=== PATIENT | female | born 1945 | race Caucasian/White ===

== ENCOUNTER → 2016-08-10 16:37 | Outpatient (CLI) | payer MEDICARE ==
[2015-08-18 11:55] VITALS: BMI 26.7
[~2016-08-10 16:37] MED LIST: CELEXA40 MG PO; GLUCOPHAGE500 MG PO; LISINOPRIL5 MG PO; NIZORAL 2 % CRE15 GM TOPICAL; PRAVASTATIN SOD10 MG PO
== END | disposition home or self-care (01) ==
LOC: D.MAMMO 07-05 15:45
DX: Z12.31 Encounter for screening mammogram for malignant neoplasm of breast (principal)

== ENCOUNTER → 2017-01-24 08:40 | Outpatient (CLI) | payer MEDICARE ==
[2015-08-18 11:55] VITALS: BMI 26.7
== END | disposition home or self-care (01) ==
LOC: D.CT 08:40
DX: R94.39 Abnormal result of other cardiovascular function study (principal); M79.604 Pain in right leg; M79.605 Pain in left leg

== ENCOUNTER → 2018-08-01 10:00 | Outpatient (CLI) | payer MEDICARE ==
[2015-08-18 11:55] VITALS: BMI 26.7
== END | disposition home or self-care (01) ==
LOC: D.MAMMO 10:00
PROVIDERS: ATTEND Clinical Nurse Specialist Adult Health
DX: Z12.31 Encounter for screening mammogram for malignant neoplasm of breast (principal)

== ENCOUNTER 2020-05-19 13:27 | Inpatient (IN) | payer MEDICARE ==
[~2020-05-19] VITALS: Ht 170.2 cm; Wt 68.5 kg
[2020-05-19 13:52] LABS: BASOPHILS 0.3 % (0-2); EOSINOPHILS 0 % (0-7); HEMATOCRIT 37.2 % (36.0-48.0); IMMATURE GRANULOCYTES 0.2 % (0-5); LYMPHOCYTE ABS# 0.95 10x3/uL (1.18-3.74); LYMPHOCYTES 14.4 % (15-50); MCH 30.9 pg (26.0-34.0); MCHC 32.3 g/dL (31.0-37.0); MCV 95.9 fL (80.0-100.0); MEAN PLATELET VOLUME 9.9 fL (7.4-10.4); MONOCYTES 12.9 % (2-11); NEUTROPHIL ABS# 4.77 10x3/uL (1.56-6.13); NEUTROPHILS 72.2 % (40-80); PLATELET COUNT 143 10x3/uL (130-400); RBC 3.88 10x6/uL (4.00-5.40); RDW 14.6 % (11.5-14.5); WBC 6.6 10x3/uL (4.8-10.8)
[2020-05-19 13:58] LABS: CALC OSMOLALITY 271 mosm/kg (275-300); CALCIUM 8.9 mg/dL (8.5-10.1); CARBON DIOXIDE 30.2 mmol/L (21.0-32.0); CHLORIDE - SERUM 94 mmol/L (98-107); CREATININE - SERUM 1.5 mg/dL (0.6-1.3); GLUCOSE 156 mg/dL (74-106); POTASSIUM - SERUM 3.3 mmol/L (3.5-5.1); SODIUM 131 mmol/L (136-145); UREA NITROGEN 30 mg/dL (7-18); eGFR NON AFRICAN AMERICAN 36 mL/min (90-120)
[2020-05-19 14:02] LABS: APTT 29.5 SECONDS (22.8-39.4); INR 1.2 (0.85-1.17); PROTIME 14.1 SECONDS (11.6-15.0)
[2020-05-19 14:14] LABS: ALBUMIN 2.8 g/dL (3.4-5.0); ALKALINE PHOSPHATASE 280 U/L (30-120); ALT (SGPT) 62 U/L (10-68); BILIRUBIN - TOTAL 3.32 mg/dL (0.2-1.3); CKMB 31.5 U/L (0.0-3.6); PROTEIN - SERUM 7.4 g/dL (6.4-8.2); TROPONIN-I 0.027 ng/mL (0.000-0.060)
[2020-05-19 14:15] LABS: CREATINE KINASE 3848 UL (21-215)
[2020-05-19 14:45] LABS: BILIRUBIN 3+ (NEGATIVE); KETONE NEGATIVE (NEGATIVE); NITRITE NEGATIVE (NEGATIVE); UROBILINOGEN 4 mg/dL (< 2)
[2020-05-19 14:47] LABS: AMORPHOUS SEDIMENT >1+ LPF (NONE SEEN); BACTERIA FEW HPF (NONE SEEN); SQUAMOUS EPITHELIAL 3 HPF (0-4); WHITE CELLS - URINE 0-5 HPF (0-4)
[2020-05-19 17:15] VITALS: BP 108/59
[2020-05-19 18:40] VITALS: BP 113/55; BMI 23.7
[2020-05-19 20:36] LABS: CREATINE KINASE 3330 UL (21-215)
[2020-05-19 20:39] LABS: CKMB 20.3 U/L (0.0-3.6)
[2020-05-20] VITALS: BP 104/56
[2020-05-20 04:00] VITALS: BP 106/56
--- NOTE | 2020-05-20 04:06 | NUR ---
ASSESSED AT THE BEGINNING OF THE SHIFT. PT WAS DROWSY AND FELL ASLEEP SOON YOU WOKE HER UP. BED ALARM IN PLACE AND IV FLUIDS INFUSING ORDERED. WE ARE ABLE TO GET HER UP TO THE BATHROOM LATER IN THE EVENING AND SHE DID WELL WITH ONE PERSON ASSIST. SHE THEN WAS AWAKE AND WANTING TO WATCH TV. SHE IS WEARING O2 AT 2 LITERS. NO COMPLAINTS HAVE BEEN VOICED.
[2020-05-20 06:48] LABS: BASOPHILS 0.5 % (0-2); EOSINOPHILS 0.5 % (0-7); HEMATOCRIT 34.4 % (36.0-48.0); HEMOGLOBIN 10.5 g/dL (12-16); IMMATURE GRANULOCYTES 0.2 % (0-5); LYMPHOCYTE ABS# 0.72 10x3/uL (1.18-3.74); LYMPHOCYTES 12.2 % (15-50); MCH 29.9 pg (26.0-34.0); MCHC 30.5 g/dL (31.0-37.0); MEAN PLATELET VOLUME 10.8 fL (7.4-10.4); MONOCYTES 15.8 % (2-11); NEUTROPHIL ABS# 4.16 10x3/uL (1.56-6.13); NEUTROPHILS 70.8 % (40-80); PLATELET COUNT 143 10x3/uL (130-400); RBC 3.51 10x6/uL (4.00-5.40); RDW 14.9 % (11.5-14.5); WBC 5.9 10x3/uL (4.8-10.8)
[2020-05-20 07:03] LABS: APTT 34.9 SECONDS (22.8-39.4); INR 1.25 (0.85-1.17); PROTIME 14.5 SECONDS (11.6-15.0)
[2020-05-20 07:24] LABS: ALBUMIN 2.3 g/dL (3.4-5.0); ALKALINE PHOSPHATASE 222 U/L (30-120); ALT (SGPT) 56 U/L (10-68); BILIRUBIN - TOTAL 3.14 mg/dL (0.2-1.3); CALCIUM 8.3 mg/dL (8.5-10.1); CARBON DIOXIDE 28.6 mmol/L (21.0-32.0); CHLORIDE - SERUM 100 mmol/L (98-107); POTASSIUM - SERUM 3.3 mmol/L (3.5-5.1); PROTEIN - SERUM 6.2 g/dL (6.4-8.2); SODIUM 135 mmol/L (136-145); UREA NITROGEN 23 mg/dL (7-18)
[2020-05-20 07:37] LABS: CALC OSMOLALITY 271 mosm/kg (275-300); CREATINE KINASE 2181 UL (21-215); CREATININE - SERUM 0.8 mg/dL (0.6-1.3); GLUCOSE 59 mg/dL (74-106); eGFR NON AFRICAN AMERICAN 74 mL/min (90-120)
[2020-05-20 07:38] LABS: CKMB 9.7 U/L (0.0-3.6)
--- NOTE | 2020-05-20 08:00 | NUR ---
ASSESSMENT PER FLOW SHEET. 02 SATS 80% ON 2 LITERS NASAL CANULA. INCREASED 02 TO 4 LITERS HIGH FLOW. SATS 93-95%. FALL PREVENTION IN PLACE
[2020-05-20 08:34] VITALS: BP 100/57
[2020-05-20 13:06] VITALS: BP 108/58
--- NOTE | 2020-05-20 15:03 | NUR ---
SC'D PLACED ON PATIENT.IS TO BEDSIDE. 500ML RETURMN DEMONSTRATION.
[2020-05-20 17:11] VITALS: BP 103/65
[2020-05-20 19:51] VITALS: BP 115/67
--- NOTE | 2020-05-21 02:30 | NUR ---
IV IS BLEEDING AND REMOVED. IV INTACTED, NEW IV PLACE IN RFA NS@125. PT WILL CONT TO BE MONITORED.
--- NOTE | 2020-05-21 03:00 | NUR ---
I have reviewed this patient and I concur with the Shift Assessment completed by the Licensed Practical Nurse today this shift.
[2020-05-21 04:32] VITALS: BP 97/31
[2020-05-21 05:44] VITALS: BP 104/76
[2020-05-21 07:03] LABS: BASOPHILS 0.4 % (0-2); EOSINOPHILS 0.8 % (0-7); HEMATOCRIT 36.7 % (36.0-48.0); HEMOGLOBIN 11.1 g/dL (12-16); IMMATURE GRANULOCYTES 0.2 % (0-5); LYMPHOCYTE ABS# 0.67 10x3/uL (1.18-3.74); LYMPHOCYTES 13.6 % (15-50); MCH 30.2 pg (26.0-34.0); MCHC 30.2 g/dL (31.0-37.0); MCV 99.7 fL (80.0-100.0); MEAN PLATELET VOLUME 10.5 fL (7.4-10.4); MONOCYTES 14.6 % (2-11); NEUTROPHIL ABS# 3.46 10x3/uL (1.56-6.13); NEUTROPHILS 70.4 % (40-80); PLATELET COUNT 149 10x3/uL (130-400); RBC 3.68 10x6/uL (4.00-5.40); RDW 14.8 % (11.5-14.5); WBC 4.9 10x3/uL (4.8-10.8)
[2020-05-21 07:18] LABS: ALBUMIN 2.4 g/dL (3.4-5.0); ALKALINE PHOSPHATASE 240 U/L (30-120); ALT (SGPT) 56 U/L (10-68); BILIRUBIN - TOTAL 2.41 mg/dL (0.2-1.3); CALC OSMOLALITY 269 mosm/kg (275-300); CALCIUM 8.5 mg/dL (8.5-10.1); CARBON DIOXIDE 27.8 mmol/L (21.0-32.0); CHLORIDE - SERUM 102 mmol/L (98-107); CREATININE - SERUM 0.7 mg/dL (0.6-1.3); GLUCOSE 86 mg/dL (74-106); POTASSIUM - SERUM 3.7 mmol/L (3.5-5.1); PROTEIN - SERUM 6.5 g/dL (6.4-8.2); SODIUM 135 mmol/L (136-145); eGFR NON AFRICAN AMERICAN 87 mL/min (90-120)
[2020-05-21 07:19] LABS: UREA NITROGEN 15 mg/dL (7-18)
--- NOTE | 2020-05-21 08:02 | NUR ---
REPOSITIONED IN BED FOR COMFORT. ALERT AND ORIENTED X3. NO C/O AT THIS TIME. LUNGS ARE DIMINISHED THROUGHOUT, NON PRODUCTIVE WET COUGH NOTED. SKIN IS INTACT WITHOUT REDNESS. IV TO RIGHT FOREARM IS PATENT WITHOUT REDNESS AT INSERTION SITE. DENIES NEEDS.
[2020-05-21 08:09] VITALS: BP 128/77
--- NOTE | 2020-05-21 10:00 | NUR ---
ATE MOST OF BREAKFAST. TOOK AM MEDS WITHOUT DIFFICULTY. DENIES NEEDS.
--- NOTE | 2020-05-21 11:30 | NUR ---
FSBS 135. NO COVERAGE NEEDED. PATIENT IS C/O BEING VERY HOT. SOME CLAMINESS NOTED. AC TURNED WAY DOWN. WILL MONITOR.
[2020-05-21 12:04] VITALS: BP 122/60
[2020-05-21 13:41] LABS: CKMB 2.2 U/L (0.0-3.6); TROPONIN-I 0.027 ng/mL (0.000-0.060)
[2020-05-21 13:43] LABS: CREATINE KINASE 738 UL (21-215)
--- NOTE | 2020-05-21 14:00 | NUR ---
AMBULATED TO BR WITH RW MIN ASSIST OF ONE. HAD SAMLL AMOUNT OF SOFT SEMI FORMED STOOL. SKIN CARE PER SELF. REPOSITIONED IN BED FOR COMFORT.
--- NOTE | 2020-05-21 16:30 | NUR ---
REHAB PRESCREENING Rehab referral received and chart reviewed. This patient has [facility] which requires a prior authorizaiton to approve rehab stay. She does have OT ordered. Rehab will begin preauth when OT evaluation is completed. Thank you for this referral! Olinda Parr, ENGLISH LECTURER Rehab PD
[2020-05-21 17:29] VITALS: BP 103/66
[2020-05-21 18:35] LABS: CKMB 2.2 U/L (0.0-3.6); CREATINE KINASE 605 UL (21-215); TROPONIN-I < 0.017 ng/mL (0.000-0.060)
--- NOTE | 2020-05-21 19:31 | NUR ---
REFUSED SUPPER TRAY AT THIS TIME. DENIES NEEDS. NO CHANGES NOTED. EKG DONE.
--- NOTE | 2020-05-21 19:48 | NUR ---
PATIENT RESTING IN BED WITH EYES CLOSED AND NO S/S OF DISTRESS. BED IN LOWEST POSITION AND CALL LIGHT IN REACH.
[2020-05-21 20:45] VITALS: BP 125/56
--- NOTE | 2020-05-21 20:59 | NUR ---
ADMINISTERED MEDS PER ORDERS. PATIENT ANUJ WELL. ENCOURAGED TO CALL WITH NEEDS.
[2020-05-22 00:49] VITALS: BP 103/52
[2020-05-22 00:53] LABS: CKMB 2.4 U/L (0.0-3.6); CREATINE KINASE 511 UL (21-215); TROPONIN-I 0.025 ng/mL (0.000-0.060)
[2020-05-22 04:43] VITALS: BP 142/73
[2020-05-22 06:03] LABS: BASOPHILS 0.2 % (0-2); EOSINOPHILS 0.7 % (0-7); HEMATOCRIT 39.3 % (36.0-48.0); HEMOGLOBIN 11.6 g/dL (12-16); IMMATURE GRANULOCYTES 0.4 % (0-5); LYMPHOCYTE ABS# 0.59 10x3/uL (1.18-3.74); LYMPHOCYTES 13.2 % (15-50); MCH 29.9 pg (26.0-34.0); MCHC 29.5 g/dL (31.0-37.0); MCV 101.3 fL (80.0-100.0); MEAN PLATELET VOLUME 10.2 fL (7.4-10.4); MONOCYTES 11.4 % (2-11); NEUTROPHIL ABS# 3.32 10x3/uL (1.56-6.13); NEUTROPHILS 74.1 % (40-80); PLATELET COUNT 156 10x3/uL (130-400); RBC 3.88 10x6/uL (4.00-5.40); RDW 14.7 % (11.5-14.5); WBC 4.5 10x3/uL (4.8-10.8)
[2020-05-22 06:37] LABS: ALBUMIN 2.3 g/dL (3.4-5.0); ALKALINE PHOSPHATASE 238 U/L (30-120); ALT (SGPT) 51 U/L (10-68); BILIRUBIN - TOTAL 2.76 mg/dL (0.2-1.3); CALC OSMOLALITY 269 mosm/kg (275-300); CALCIUM 8.6 mg/dL (8.5-10.1); CARBON DIOXIDE 28.7 mmol/L (21.0-32.0); CHLORIDE - SERUM 102 mmol/L (98-107); CKMB 2.9 U/L (0.0-3.6); CREATININE - SERUM 0.6 mg/dL (0.6-1.3); GLUCOSE 89 mg/dL (74-106); POTASSIUM - SERUM 3.9 mmol/L (3.5-5.1); PROTEIN - SERUM 6.5 g/dL (6.4-8.2); SODIUM 136 mmol/L (136-145); eGFR NON AFRICAN AMERICAN > 90 mL/min (90-120)
[2020-05-22 06:38] LABS: UREA NITROGEN 11 mg/dL (7-18)
[2020-05-22 06:48] LABS: CREATINE KINASE 441 UL (21-215)
--- NOTE | 2020-05-22 08:00 | NUR ---
ROUSES TO VERBAL STIMULATION. ORIENTED X3. NO C/O AT THIS TIME. LUNGS HAVE FAINT CRACKELS THROUGHOUT AND DIMINISHED. OCCASSIONAL WET COUGH NOTED. SKIN IS INTACT WITHOUT REDNESS. IV TO RIGHT FOREARM IS PATENT WITHOUT REDNESS AT INSERTION SITE. DENIES NEEDS.
[2020-05-22 09:04] VITALS: BP 119/69
[2020-05-22 12:06] VITALS: BP 104/57
--- NOTE | 2020-05-22 13:00 | NUR ---
URINE SPECIMEN SENT TO LAB.
[2020-05-22 16:48] VITALS: BP 128/62
--- NOTE | 2020-05-22 18:42 | NUR ---
ROUSES EASILY TO VERBAL STIMULATION. REFUSED TO EAT SUPPER STATED SHE JUST WASN'T HUNGRY. NO CHANGES NOTED. DENIES NEEDS.
[2020-05-22 20:15] VITALS: BP 119/61
[2020-05-23 04:58] VITALS: BP 116/74
[2020-05-23 06:24] LABS: BASOPHILS 0.2 % (0-2); EOSINOPHILS 1.1 % (0-7); HEMATOCRIT 38.4 % (36.0-48.0); HEMOGLOBIN 11.7 g/dL (12-16); IMMATURE GRANULOCYTES 0.2 % (0-5); LYMPHOCYTE ABS# 0.61 10x3/uL (1.18-3.74); LYMPHOCYTES 12.8 % (15-50); MCH 30.3 pg (26.0-34.0); MCHC 30.5 g/dL (31.0-37.0); MCV 99.5 fL (80.0-100.0); MEAN PLATELET VOLUME 10.1 fL (7.4-10.4); MONOCYTES 10.9 % (2-11); NEUTROPHIL ABS# 3.56 10x3/uL (1.56-6.13); NEUTROPHILS 74.8 % (40-80); PLATELET COUNT 175 10x3/uL (130-400); RBC 3.86 10x6/uL (4.00-5.40); RDW 14.7 % (11.5-14.5); WBC 4.8 10x3/uL (4.8-10.8)
[2020-05-23 07:26] LABS: ALBUMIN 2.3 g/dL (3.4-5.0); ALKALINE PHOSPHATASE 241 U/L (30-120); ALT (SGPT) 52 U/L (10-68); CALC OSMOLALITY 278 mosm/kg (275-300); CALCIUM 8.5 mg/dL (8.5-10.1); CARBON DIOXIDE 28.5 mmol/L (21.0-32.0); CHLORIDE - SERUM 104 mmol/L (98-107); CKMB 2.2 U/L (0.0-3.6); CREATININE - SERUM 0.6 mg/dL (0.6-1.3); GLUCOSE 121 mg/dL (74-106); POTASSIUM - SERUM 4.1 mmol/L (3.5-5.1); PROTEIN - SERUM 6.1 g/dL (6.4-8.2); SODIUM 140 mmol/L (136-145); UREA NITROGEN 10 mg/dL (7-18); eGFR NON AFRICAN AMERICAN > 90 mL/min (90-120)
[2020-05-23 08:06] LABS: CREATINE KINASE 236 UL (21-215)
--- NOTE | 2020-05-23 08:21 | NUR ---
patient asleep in bed, easily awakened for asessment, nc at 1.5, scd's on, iv in rt ac ns at 75.no needs voiced at this time, cl in reach. continue with plan of care
[2020-05-23 09:22] VITALS: BP 150/69
[2020-05-23 12:41] VITALS: Ht 170.2 cm; Wt 68.5 kg
[2020-05-23 13:06] LABS: AMORPHOUS SEDIMENT <1+ LPF (NONE SEEN); BACTERIA MODERATE HPF (NONE SEEN); BILIRUBIN NEGATIVE (NEGATIVE); KETONE NEGATIVE (NEGATIVE); NITRITE NEGATIVE (NEGATIVE); SQUAMOUS EPITHELIAL 0-5 HPF (0-4); UROBILINOGEN 4 mg/dL (< 2); WHITE CELLS - URINE RARE HPF (0-4)
[2020-05-23 14:42] VITALS: BP 112/54
--- NOTE | 2020-05-23 14:47 | NUR ---
I have reviewed this patient and I concur with the Shift Assessment completed by the Licensed Practical Nurse today this shift.
--- NOTE | 2020-05-23 16:26 | NUR ---
REHAB PRESCREEN: WE FEEL THE PATIENT WILL BE A GOOD CANDIDATE FOR INPATIENT REHAB, PENDING AUTHORIZATION FROM [facility] AND PTS WILLINGNESS TO PARTICIPATE. AUTH BEING SENT OFF. WILL WAIT DETERMINATION. I HAVE SPOKEN WITH SCOTT SAMAYOA RN CM AND MADE HER AWARE OF THE ABOVE. THANK YOU FOR THE REFERRAL. BETI COREAS RN CLINICAL LIAISON, INPATIENT REHAB.
[2020-05-23 18:55] VITALS: BP 113/60
[2020-05-23 20:00] VITALS: BP 119/60
[2020-05-24] VITALS: BP 113/58; BP 120/53
[2020-05-24 04:00] VITALS: BP 130/66
[2020-05-24 04:52] LABS: BASOPHILS 0.5 % (0-2); EOSINOPHILS 1.6 % (0-7); HEMATOCRIT 37.7 % (36.0-48.0); HEMOGLOBIN 11.4 g/dL (12-16); IMMATURE GRANULOCYTES 0.2 % (0-5); LYMPHOCYTE ABS# 0.65 10x3/uL (1.18-3.74); MCH 30.2 pg (26.0-34.0); MCHC 30.2 g/dL (31.0-37.0); MCV 99.7 fL (80.0-100.0); MEAN PLATELET VOLUME 10.3 fL (7.4-10.4); MONOCYTES 12.2 % (2-11); NEUTROPHIL ABS# 3.06 10x3/uL (1.56-6.13); NEUTROPHILS 70.5 % (40-80); PLATELET COUNT 177 10x3/uL (130-400); RBC 3.78 10x6/uL (4.00-5.40); RDW 14.8 % (11.5-14.5); WBC 4.3 10x3/uL (4.8-10.8)
[2020-05-24 05:20] LABS: ALBUMIN 2.2 g/dL (3.4-5.0); ALKALINE PHOSPHATASE 233 U/L (30-120); ALT (SGPT) 47 U/L (10-68); BILIRUBIN - TOTAL 1.41 mg/dL (0.2-1.3); CALC OSMOLALITY 279 mosm/kg (275-300); CALCIUM 8.7 mg/dL (8.5-10.1); CARBON DIOXIDE 29.5 mmol/L (21.0-32.0); CHLORIDE - SERUM 103 mmol/L (98-107); CKMB 2.8 U/L (0.0-3.6); CREATINE KINASE 169 UL (21-215); CREATININE - SERUM 0.6 mg/dL (0.6-1.3); GLUCOSE 107 mg/dL (74-106); POTASSIUM - SERUM 3.7 mmol/L (3.5-5.1); PROTEIN - SERUM 6.3 g/dL (6.4-8.2); SODIUM 141 mmol/L (136-145); UREA NITROGEN 10 mg/dL (7-18); eGFR NON AFRICAN AMERICAN > 90 mL/min (90-120)
[2020-05-24 09:34] VITALS: BP 114/62
--- NOTE | 2020-05-24 10:28 | NUR ---
@5364, I SPOKE WITH MARION AT [facility], PATIENTS PREAUTHORIZATIO IS STILL PENDING REVIEW. WE WILL CONTINUE TO FOLLOW AND AWAIT INSURANCE DETERMINATION. BETI COREAS RN CM CLINICAL LIAISON, INPATIENT REHAB.
[2020-05-24 13:23] VITALS: BP 116/62
--- NOTE | 2020-05-24 16:11 | NUR ---
OT NOTE: PT REQUIRED MOD-MAX A FOR BED MOBILITY TASKS. PT COMPLETED UPRIGHT POSITIONING FOR FEEDING TASKS REQUIRED MOD-MAX A. PT COMPLETED SELF FEEDING TASKS WITH SETUP. PT COMPLETED UB FACE HYGIENE WITH SETUP. [phone] THANK YOU,RICHIE TATE
[2020-05-24 18:55] VITALS: BP 117/60
[2020-05-24 20:00] VITALS: BP 108/68
[2020-05-25 04:00] VITALS: BP 123/66
[2020-05-25 05:41] LABS: BASOPHILS 0.4 % (0-2); EOSINOPHILS 1.4 % (0-7); HEMOGLOBIN 11.8 g/dL (12-16); IMMATURE GRANULOCYTES 0.2 % (0-5); LYMPHOCYTE ABS# 0.92 10x3/uL (1.18-3.74); LYMPHOCYTES 17.9 % (15-50); MCH 30.3 pg (26.0-34.0); MCHC 30.3 g/dL (31.0-37.0); MCV 100.3 fL (80.0-100.0); MEAN PLATELET VOLUME 9.4 fL (7.4-10.4); MONOCYTES 11.5 % (2-11); NEUTROPHIL ABS# 3.53 10x3/uL (1.56-6.13); NEUTROPHILS 68.6 % (40-80); PLATELET COUNT 161 10x3/uL (130-400); RBC 3.89 10x6/uL (4.00-5.40); RDW 14.9 % (11.5-14.5); WBC 5.1 10x3/uL (4.8-10.8)
[2020-05-25 06:23] LABS: ALBUMIN 2.3 g/dL (3.4-5.0); ALKALINE PHOSPHATASE 239 U/L (30-120); ALT (SGPT) 49 U/L (10-68); BILIRUBIN - TOTAL 1.49 mg/dL (0.2-1.3); CALC OSMOLALITY 282 mosm/kg (275-300); CALCIUM 8.9 mg/dL (8.5-10.1); CARBON DIOXIDE 32.7 mmol/L (21.0-32.0); CHLORIDE - SERUM 105 mmol/L (98-107); CKMB 2.6 U/L (0.0-3.6); CREATININE - SERUM 0.5 mg/dL (0.6-1.3); GLUCOSE 105 mg/dL (74-106); POTASSIUM - SERUM 3.7 mmol/L (3.5-5.1); PROTEIN - SERUM 6.6 g/dL (6.4-8.2); SODIUM 143 mmol/L (136-145); eGFR NON AFRICAN AMERICAN > 90 mL/min (90-120)
[2020-05-25 06:25] LABS: UREA NITROGEN 7 mg/dL (7-18)
--- NOTE | 2020-05-25 08:43 | NUR ---
@9169, SPOKE WITH MILVIA AT [facility], SHE STATED THE PATIENTS CASE IS SHOWING THAT IT IS STILL IN REVIEW. SHE HAD DENIED THE NEED FOR FURTHER INFORMATION. WE WILL CONTINUE TO WAIT AUTHORIZATION DETERMINATION. BETI COREAS RN CLINICAL LIAISON, INPATIENT REHAB
[2020-05-25 08:49] VITALS: BP 119/54
--- NOTE | 2020-05-25 09:41 | NUR ---
ASSESSMENT PER FLOW SHEET. PATIENT IS WITHOUT DISTRESS.AM MEDS AND ASSIST WITH BREAKFAST TRAY. FALL PREVENTION WITH MELLISSA MAT. DOOR OPEN TO MONITOR.
[2020-05-25 12:19] VITALS: BP 114/49
--- NOTE | 2020-05-25 15:02 | NUR ---
OT NOTE: PT PERFORMED WELL TODAY. BED MOB WITH MIN ASSIST; AMB TO TOILET WITH WALKER AND MIN ASSIST.. UNSTEADY WITH GAIT.. TOILET TRANSFER WITH MIN ASSIST; HYGIENE WITH MAX ASSIST; MOD ASSIST TO PULL UP BRIEFS. MIN ASSIST TO DANIELLE CLEAN GOWN; SET UP TO WASH FACE AND HANDS WITH CLOTH..AMB INTO HALLWAY WITH WALKER, 02, IV, GAIT BELT, AND MIN ASSIST X 2.. TRANSFERRED UP TO CHAIR WITH MIN ASSIST. ALARM PAD PLACED IN CHAIR WITH CL IN REACH. SCOTT STEPHEN, OTR/L [phone]
--- NOTE | 2020-05-25 15:31 | NUR ---
HELPED BACK TO BED MIN TO STAND A BIT UNBALANCE WHILE WALKING
--- NOTE | 2020-05-25 15:39 | NUR ---
@3270, DANETTE SADLER RN CLINICAL LIAISON ORIENTEE, SPOKE WITH ANTONIO IN [facility], AND HE STATED AT THIS TIME IT SHOWS THE CLINICALS ARE STILL IN QUE AND HAVE NOT BEEN ASSIGNED YET. WE WILL CALL BACK IN THE MORNING IF WE DO NOT HEAR BACK FROM THEM BY THEN. BETI COREAS RN CLINICAL LIAISON, INPATIENT REHAB.
--- NOTE | 2020-05-25 18:37 | NUR ---
FAMILY HERE TO VISIT WITH PATIENT. SHE IS WITHOUT CHANGE FROM INITIAL ASSESSMENT. CONT PLAN OF CARE
[2020-05-25 18:40] VITALS: BP 125/67
[2020-05-25 20:00] VITALS: BP 135/76
[2020-05-26] VITALS: BP 125/72
--- NOTE | 2020-05-26 00:54 | NUR ---
PT RESTING WITH EYES CLOSED. SCD'S ON. IV PATENT. PT HAS NO NEEDS AT THE MOMENT CALL LIGHT WITHIN REACH.
--- NOTE | 2020-05-26 00:59 | NUR ---
I have reviewed this patient and I concur with the Shift Assessment completed by the Licensed Practical Nurse today this shift.
[2020-05-26 04:00] VITALS: BP 133/71
[2020-05-26 05:54] LABS: BASOPHILS 0.6 % (0-2); EOSINOPHILS 1.1 % (0-7); HEMATOCRIT 37.7 % (36.0-48.0); HEMOGLOBIN 11.1 g/dL (12-16); IMMATURE GRANULOCYTES 0.2 % (0-5); LYMPHOCYTE ABS# 0.76 10x3/uL (1.18-3.74); LYMPHOCYTES 16.4 % (15-50); MCH 29.8 pg (26.0-34.0); MCHC 29.4 g/dL (31.0-37.0); MCV 101.1 fL (80.0-100.0); MEAN PLATELET VOLUME 10.4 fL (7.4-10.4); MONOCYTES 11.4 % (2-11); NEUTROPHIL ABS# 3.25 10x3/uL (1.56-6.13); NEUTROPHILS 70.3 % (40-80); PLATELET COUNT 153 10x3/uL (130-400); RBC 3.73 10x6/uL (4.00-5.40); RDW 15.1 % (11.5-14.5); WBC 4.6 10x3/uL (4.8-10.8)
[2020-05-26 06:27] LABS: ALBUMIN 2.2 g/dL (3.4-5.0); ALKALINE PHOSPHATASE 226 U/L (30-120); ALT (SGPT) 48 U/L (10-68); BILIRUBIN - TOTAL 1.35 mg/dL (0.2-1.3); CALC OSMOLALITY 282 mosm/kg (275-300); CALCIUM 9.1 mg/dL (8.5-10.1); CARBON DIOXIDE 33.1 mmol/L (21.0-32.0); CHLORIDE - SERUM 105 mmol/L (98-107); CREATININE - SERUM 0.5 mg/dL (0.6-1.3); GLUCOSE 107 mg/dL (74-106); POTASSIUM - SERUM 3.8 mmol/L (3.5-5.1); PROTEIN - SERUM 6.3 g/dL (6.4-8.2); SODIUM 143 mmol/L (136-145); UREA NITROGEN 7 mg/dL (7-18); eGFR NON AFRICAN AMERICAN > 90 mL/min (90-120)
[2020-05-26 08:42] VITALS: BP 122/74
--- NOTE | 2020-05-26 09:45 | NUR ---
I HAVE SPOKEN WITH TIFFANIE BRADEN WITH [facility], PATIENT HAS BEEN DENIED INPATIENT REHAB. SHE STATED A P2P CAN BE DONE BY CALLING [phone] OPTION #5. THIS MUST BE DONE BY 1400 TODAY. I HAVE DISCUSSED THIS WITH SCOTT SAMAYOA RN CM. BETI COREAS RN CM CLINICAL LIAISON, INPATIENT REHAB.
--- NOTE | 2020-05-26 13:07 | NUR ---
Nutrition follow-up: Diet order: low sodium PO Intake 50% of last 3 meals Labs reviewed Wt: 150# Pt with + fluid balance +BM Pt continues with fair po intake; meeting est fluid needs Recommend: Change diet order to regular as tolerated to encourage increased po intake Will continue to offer nutritional supplements. RDN follow-up: 05/31/20
--- NOTE | 2020-05-26 13:24 | MORECARE ---
CASE MANAGEMENT DISCHARGE SUMMARY PATIENT: MARK NDIAYE UNIT: [id number] ADM DATE: 05/19/20 AGE: 74 : 46 SEX: F ROOM/BED: D.2213 AUTHOR: ALEXANDER GRIFFIN PHYSICIAN: REFERRING PHYSICIAN: DANETTE CHAVEZ MD DATE OF SERVICE: 05/26/20 Case Management Discharge Planning Summary COMMENTS ENTERED DATE: 05/24/20 10:41 CT COMMENT TYPE: Discharge Planning REVIEWER: Marion Gamez CM met with patient & her sisters to complete initial dc planning assessment. CM educated patient on the CM role and verbal consent given by patient to complete assessment. Patient lives at home where she had been independent. Per one sister she was getting dizzy at home and she had just bought her a walker before she fell. She stated that her son had been helping take her to get her medications and md appointments. Dr Pringle is her PCP. At discharge patient would like to go to inpatient rehab as long as she has a private room and feels this is a safe discharge. CM discussed availability of home health, rehab services, and medical equipment. She uses home O2 and portable. she gets her O2 DME from [facility]. PHILLIP has been signed for Inpatient rehab. Patient denied known discharge needs at this time. CM will continue to follow and will assist as needed with dc plans/needs. DCP REVIEW SUMMARY ANTICIPATED D/C DATE: EXPECTED LOS : CASE STATUS: DCP Initiated INITIAL REVIEW: 05/19/2020 INITIAL REVIEWER: Marion Gamez FINAL DISCHARGE DISPOSITION: : FINAL REVIEWER: FINAL REVIEW DATE: DCP Focus Questions & Answers DCP Screen QUESTION: ANSWER High Risk Factors: : Hosp related to CHF, COPD, DM, End Stage Ds, CVA, CA DCP Evaluation QUESTION: ANSWER Patient and/or caregiver agree upon recommended discharge plan? : Yes Family / Caregiver's ability to cope with chronic illness: : a. Adequate (ability to meet patient's medical needs, ensures patient attends medical appts.) Patient's current cognitive status: : Intermittently confused / memory changes Patient's ability to cope with chronic illness : d. No chronic illness Patient gives permission to discuss discharge plans with: (name, relationship and number) : ALL SISTERS AND SON Alternate discharge plan (if recommended plan not agreed upon by patient and/or caregiver): : 1)INPATIENT REHAB WOULD LIKE A PRIVATE ROOM 2) SKILLED Does the patient have the ability to pay for or attain post discharge needs / services? : Yes Functional screen assessment: : New onset in difficulty in gait, balance, or transfer difficulties Functional screen assessment: : Unable to manage ADLs without immediate ongoing assistance Family / Caregiver's ability to cope with chronic illness: : b. Minimal (occasionally not dependable to meet pt's. needs, can meet pt's. basic ADL's) Physical Status: : Mobility impaired Is there a likelihood that the patient will require additional services to return to the preadmission environment? : Yes Living Arrangements: : Home Alone with Support Partial Dependence, assistance required for: : Bathing Results of this evaluation have been discussed with: : Patient Results of this evaluation have been discussed with: : Family Patient with capacity for self-care or can be cared for in same environment as prior to hospitalization? : No Living arrangements comments: : LIVES ALONE HAS GOOD SUPPORT SYSTEM Baseline cognitive status: : *Oriented to person, place, situation, time and present Physical environment modification needed / anticipated for discharge: : Yes Comments: : [facility]LE [facility] Medication Management: : Patient states can afford medications Planned post hospital services available for patient? : Yes Pharmacy name(s): : [facility] IN [place] Does Patient have transportation to get home and to follow-up medical appointments when discharged from the hospital? : Yes Would patient like to participate in any Care Coordination programs (if applicable): : Not applicable Comments: : HER SON HELPS Does the patient have electricity at home? : Yes Does the patient have running water in their house? : Yes Equipment in use: : Walker - Rollator Equipment in use: : Home Oxygen with Nasal Cannula Other Equipment comments: : HAS A WALKER, BUT WAS NOT USING IT Mental health screen: : No mental health history Psychosocial status: : Adult with physical limitations DCP Re-evaluation QUESTION: ANSWER Would patient like to participate in any Care Coordination programs (if applicable): : Not applicable PATIENT: MARK NDIAYE ENCOUNTER: [id number] MEDICAL RECORD#: [id number] ADMISSION DATE: 05/19/2020 DISCHARGE DATE: ATTENDING MD: DANETTE ALAN : AGE: 74 MARITAL STATUS: W DC PLAN ID: [id number] FACILITY: [facility] PRINTED ON: 05/26/20 13:24 CT All edits/amendments must be made on the electronic document DICTATION DATE: 05/26/20 132 MEDICAL TECHNOLOGIST GENERALIST: MARITO 05/26/20 1324 RPT#: [id number] DC DATE: STATUS: ADM IN [facility] [address] [place] [address] END OF REPORT
--- NOTE | 2020-05-26 13:49 | MORECARE ---
CASE MANAGEMENT DISCHARGE SUMMARY PATIENT: MARK NDIAYE UNIT: [id number] ADM DATE: 05/19/20 AGE: 74 : 46 SEX: F ROOM/BED: D.2213 AUTHOR: GABY,DOC PHYSICIAN: REFERRING PHYSICIAN: DANETTE CHAVEZ MD DATE OF SERVICE: 05/26/20 Case Management Discharge Planning Summary COMMENTS ENTERED DATE: 05/26/20 13:39 CT COMMENT TYPE: Discharge Planning REVIEWER: Marion Gamez PATIENT WAS DENIED INPATIENT REHAB, I SPOKE WITH THE PATIENT TO SEE IF SHE WOULD LIKE TO GO TO A SKILLED FACILITY AND SHE WOULD, REFERRAL TO BE SENT TO [facility] ENTERED DATE: 05/24/20 10:41 CT COMMENT TYPE: Discharge Planning REVIEWER: Marion Gamez CM met with patient & her sisters to complete initial dc planning assessment. CM educated patient on the CM role and verbal consent given by patient to complete assessment. Patient lives at home where she had been independent. Per one sister she was getting dizzy at home and she had just bought her a walker before she fell. She stated that her son had been helping take her to get her medications and md appointments. Dr Pringle is her PCP. At discharge patient would like to go to inpatient rehab as long as she has a private room and feels this is a safe discharge. CM discussed availability of home health, rehab services, and medical equipment. She uses home O2 and portable. she gets her O2 DME from [facility]. PHILLIP has been signed for Inpatient rehab. Patient denied known discharge needs at this time. CM will continue to follow and will assist as needed with dc plans/needs. DCP REVIEW SUMMARY ANTICIPATED D/C DATE: EXPECTED LOS : CASE STATUS: DCP Initiated INITIAL REVIEW: 05/19/2020 INITIAL REVIEWER: Marion Gamez FINAL DISCHARGE DISPOSITION: : FINAL REVIEWER: FINAL REVIEW DATE: DCP Focus Questions & Answers DCP Screen QUESTION: ANSWER High Risk Factors: : Hosp related to CHF, COPD, DM, End Stage Ds, CVA, CA DCP Evaluation QUESTION: ANSWER Patient and/or caregiver agree upon recommended discharge plan? : Yes Family / Caregiver's ability to cope with chronic illness: : a. Adequate (ability to meet patient's medical needs, ensures patient attends medical appts.) Patient's current cognitive status: : Intermittently confused / memory changes Patient's ability to cope with chronic illness : d. No chronic illness Patient gives permission to discuss discharge plans with: (name, relationship and number) : ALL SISTERS AND SON Alternate discharge plan (if recommended plan not agreed upon by patient and/or caregiver): : 1)INPATIENT REHAB WOULD LIKE A PRIVATE ROOM 2) SKILLED Does the patient have the ability to pay for or attain post discharge needs / services? : Yes Functional screen assessment: : New onset in difficulty in gait, balance, or transfer difficulties Functional screen assessment: : Unable to manage ADLs without immediate ongoing assistance Family / Caregiver's ability to cope with chronic illness: : b. Minimal (occasionally not dependable to meet pt's. needs, can meet pt's. basic ADL's) Physical Status: : Mobility impaired Is there a likelihood that the patient will require additional services to return to the preadmission environment? : Yes Living Arrangements: : Home Alone with Support Partial Dependence, assistance required for: : Bathing Results of this evaluation have been discussed with: : Patient Results of this evaluation have been discussed with: : Family Patient with capacity for self-care or can be cared for in same environment as prior to hospitalization? : No Living arrangements comments: : LIVES ALONE HAS GOOD SUPPORT SYSTEM Baseline cognitive status: : *Oriented to person, place, situation, time and present Physical environment modification needed / anticipated for discharge: : Yes Comments: : DR PRINGLE IS PCP [facility] FOR HOME O2 Medication Management: : Patient states can afford medications Planned post hospital services available for patient? : Yes Pharmacy name(s): : [facility] IN [place] Does Patient have transportation to get home and to follow-up medical appointments when discharged from the hospital? : Yes Would patient like to participate in any Care Coordination programs (if applicable): : Not applicable Comments: : HER SON HELPS Does the patient have electricity at home? : Yes Does the patient have running water in their house? : Yes Equipment in use: : Walker - Rollator Equipment in use: : Home Oxygen with Nasal Cannula Other Equipment comments: : HAS A WALKER, BUT WAS NOT USING IT Mental health screen: : No mental health history Psychosocial status: : Adult with physical limitations DCP Re-evaluation QUESTION: ANSWER Would patient like to participate in any Care Coordination programs (if applicable): : Not applicable PATIENT: MARK NDIAYE ENCOUNTER: [id number] MEDICAL RECORD#: [id number] ADMISSION DATE: 05/19/2020 DISCHARGE DATE: ATTENDING MD: DANETTE ALAN : AGE: 74 MARITAL STATUS: W DC PLAN ID: [id number] FACILITY: [facility] PRINTED ON: 05/26/20 13:49 CT All edits/amendments must be made on the electronic document DICTATION DATE: 05/26/20 134 HALAL BUTCHER: MARITO 05/26/20 134 RPT#: [id number] DC DATE: STATUS: ADM IN [facility] [address] [place] [address] END OF REPORT
[2020-05-26 14:04] VITALS: BP 110/70
[2020-05-26 16:49] VITALS: BP 137/76
--- NOTE | 2020-05-26 17:13 | NUR ---
OT NOTE: PT COMPLETED SUPINE TO SIT WITH SBA. PT COMPLETED ADL MOB WITH CGA TO TOILET. PT COMPLETED TOILET HYGIENE WITH MIN A. PT COMPLETED FACE AND HAND HYGIENE WITH SETUP. PT COMPLETED EOB SITTING WITH SBA. [phone] THANK YOU,RICHIE TATE
[2020-05-26 20:00] VITALS: BP 127/68
[2020-05-27] VITALS: BP 126/65
[2020-05-27 04:00] VITALS: BP 124/63
[2020-05-27 05:38] LABS: BASOPHILS 0.4 % (0-2); EOSINOPHILS 1.9 % (0-7); HEMATOCRIT 37.6 % (36.0-48.0); HEMOGLOBIN 11.3 g/dL (12-16); IMMATURE GRANULOCYTES 0.2 % (0-5); LYMPHOCYTES 15.1 % (15-50); MCH 30.3 pg (26.0-34.0); MCHC 30.1 g/dL (31.0-37.0); MCV 100.8 fL (80.0-100.0); MEAN PLATELET VOLUME 9.9 fL (7.4-10.4); MONOCYTES 11.7 % (2-11); NEUTROPHIL ABS# 3.27 10x3/uL (1.56-6.13); NEUTROPHILS 70.7 % (40-80); PLATELET COUNT 135 10x3/uL (130-400); RBC 3.73 10x6/uL (4.00-5.40); RDW 15.2 % (11.5-14.5); WBC 4.6 10x3/uL (4.8-10.8)
[2020-05-27 05:56] LABS: ALBUMIN 2.3 g/dL (3.4-5.0); ALKALINE PHOSPHATASE 227 U/L (30-120); ALT (SGPT) 46 U/L (10-68); BILIRUBIN - TOTAL 1.43 mg/dL (0.2-1.3); CALC OSMOLALITY 281 mosm/kg (275-300); CALCIUM 9.1 mg/dL (8.5-10.1); CARBON DIOXIDE 32.7 mmol/L (21.0-32.0); CHLORIDE - SERUM 105 mmol/L (98-107); CREATININE - SERUM 0.5 mg/dL (0.6-1.3); GLUCOSE 100 mg/dL (74-106); POTASSIUM - SERUM 3.7 mmol/L (3.5-5.1); PROTEIN - SERUM 6.3 g/dL (6.4-8.2); SODIUM 142 mmol/L (136-145); eGFR NON AFRICAN AMERICAN > 90 mL/min (90-120)
[2020-05-27 06:11] LABS: UREA NITROGEN 10 mg/dL (7-18)
--- NOTE | 2020-05-27 06:49 | NUR ---
PT HELPED TO BATHROOM. PT SHORT OF BREATH AFTER WALKING BACK TO BED. PT REFUSE SCD'S. NO COMPLAINTS AT THE MOMENT.
[2020-05-27 08:46] VITALS: BP 115/63
--- NOTE | 2020-05-27 09:00 | NUR ---
RECIEVED BEDSIDE REPORT. DENIES NEEDS AT THIS TIME. BED LOW POSITION, CALL LIGHT IN REACH. WILL CONTINUE TO MONITOR.
[2020-05-27 12:00] VITALS: BP 117/67
--- NOTE | 2020-05-27 12:23 | NUR ---
OT NOTE: PT INITIALLY VERY LETHARGIC THIS AM.. BREAKFAST TRAY AT BEDSIDE AND SHE WAS NOT AWARE THAT BREAKFAST HAD COME..BED MOB WITH MIN/MOD ASSIST FOR SUPINE TO SIT; ABLE TO DANIELLE CLEAN GOWN WITH MIN ASSIST; AMB TO BATHROOM WITH WALKER AND MIN ASSIST; CLOTHING MGMT WITH MIN ASSIST; TOILET HYGIENE WITH MAX ASSIST; SINK HYGIENE IN STANDING WITH MIN ASSIST FOR BALANCE; IN ROOM AMBULATION WITH MIN ASSIST; AMB INTO HALLWAY GREATER THAN 50 FT TO IMPROVE STRENGTH AND ENDURANCE.. NO REST BREAK REQUIRED. TRANSFERRED TO CHAIR WITH MIN ASSIST; ABLE TO FEED SELF INDEP AFTER SET UP OF TRAY. ALARM PAD IN PLACE. SCOTT STEPHEN, OTR/L [phone]
--- NOTE | 2020-05-27 15:39 | MORECARE ---
CASE MANAGEMENT DISCHARGE SUMMARY PATIENT: MARK NDIAYE UNIT: [id number] ADM DATE: 05/19/20 AGE: 74 : 46 SEX: F ROOM/BED: D.2213 AUTHOR: GABY,DOC PHYSICIAN: REFERRING PHYSICIAN: DANETTE CHAVEZ MD DATE OF SERVICE: 05/27/20 Case Management Discharge Planning Summary COMMENTS ENTERED DATE: 05/27/20 15:29 CT COMMENT TYPE: Discharge Planning REVIEWER: Marion Gamez RECEIVED A CALL FROM [facility] STATING THAT THEY HAVE APPROVAL, BUT ARE PENDING THE DATES SHE IS APRROVED SHE WILL REACH OUT TO US WHEN SHE RECEIVES THAT INFORMATION I ALSO REACHED OUT TO HER TO GET AN UPDATE AND LEFT A MESSAGE FOR HER TO CALL ME ENTERED DATE: 05/26/20 13:39 CT COMMENT TYPE: Discharge Planning REVIEWER: Marion Gamez PATIENT WAS DENIED INPATIENT REHAB, I SPOKE WITH THE PATIENT TO SEE IF SHE WOULD LIKE TO GO TO A SKILLED FACILITY AND SHE WOULD, REFERRAL TO BE SENT TO [facility] ENTERED DATE: 05/24/20 10:41 CT COMMENT TYPE: Discharge Planning REVIEWER: Marion Gamez CM met with patient & her sisters to complete initial dc planning assessment. CM educated patient on the CM role and verbal consent given by patient to complete assessment. Patient lives at home where she had been independent. Per one sister she was getting dizzy at home and she had just bought her a walker before she fell. She stated that her son had been helping take her to get her medications and md appointments. Dr Pringle is her PCP. At discharge patient would like to go to inpatient rehab as long as she has a private room and feels this is a safe discharge. CM discussed availability of home health, rehab services, and medical equipment. She uses home O2 and portable. she gets her O2 DME from [facility]. PHILLIP has been signed for Inpatient rehab. Patient denied known discharge needs at this time. CM will continue to follow and will assist as needed with dc plans/needs. DCP REVIEW SUMMARY ANTICIPATED D/C DATE: EXPECTED LOS : CASE STATUS: DCP Initiated INITIAL REVIEW: 05/19/2020 INITIAL REVIEWER: Marion Gamez FINAL DISCHARGE DISPOSITION: : FINAL REVIEWER: FINAL REVIEW DATE: DCP Focus Questions & Answers DCP Screen QUESTION: ANSWER High Risk Factors: : Hosp related to CHF, COPD, DM, End Stage Ds, CVA, CA DCP Evaluation QUESTION: ANSWER Patient and/or caregiver agree upon recommended discharge plan? : Yes Patient's current cognitive status: : Intermittently confused / memory changes Patient's ability to cope with chronic illness : d. No chronic illness Patient gives permission to discuss discharge plans with: (name, relationship and number) : ALL SISTERS AND SON Family / Caregiver's ability to cope with chronic illness: : a. Adequate (ability to meet patient's medical needs, ensures patient attends medical appts.) Alternate discharge plan (if recommended plan not agreed upon by patient and/or caregiver): : 1)INPATIENT REHAB WOULD LIKE A PRIVATE ROOM 2) SKILLED Does the patient have the ability to pay for or attain post discharge needs / services? : Yes Functional screen assessment: : Unable to manage ADLs without immediate ongoing assistance Functional screen assessment: : New onset in difficulty in gait, balance, or transfer difficulties Family / Caregiver's ability to cope with chronic illness: : b. Minimal (occasionally not dependable to meet pt's. needs, can meet pt's. basic ADL's) Physical Status: : Mobility impaired Is there a likelihood that the patient will require additional services to return to the preadmission environment? : Yes Living Arrangements: : Home Alone with Support Partial Dependence, assistance required for: : Bathing Results of this evaluation have been discussed with: : Family Results of this evaluation have been discussed with: : Patient Patient with capacity for self-care or can be cared for in same environment as prior to hospitalization? : No Baseline cognitive status: : *Oriented to person, place, situation, time and present Living arrangements comments: : LIVES ALONE HAS GOOD SUPPORT SYSTEM Comments: : DR PRINGLE IS PCP [facility]- FOR HOME O2 Physical environment modification needed / anticipated for discharge: : Yes Medication Management: : Patient states can afford medications Planned post hospital services available for patient? : Yes Pharmacy name(s): : [facility] [place] Does Patient have transportation to get home and to follow-up medical appointments when discharged from the hospital? : Yes Comments: : HER SON HELPS Would patient like to participate in any Care Coordination programs (if applicable): : Not applicable Does the patient have electricity at home? : Yes Does the patient have running water in their house? : Yes Equipment in use: : Home Oxygen with Nasal Cannula Equipment in use: : Walker - Rollator Other Equipment comments: : HAS A WALKER, BUT WAS NOT USING IT Mental health screen: : No mental health history Psychosocial status: : Adult with physical limitations DCP Re-evaluation QUESTION: ANSWER Would patient like to participate in any Care Coordination programs (if applicable): : Not applicable PATIENT: MARK NDIAYE ENCOUNTER: [id number] MEDICAL RECORD#: [id number] ADMISSION DATE: 05/19/2020 DISCHARGE DATE: ATTENDING MD: DANETTE ALAN : AGE: 74 MARITAL STATUS: W DC PLAN ID: [id number] FACILITY: [facility] PRINTED ON: 05/27/20 15:39 CT All edits/amendments must be made on the electronic document DICTATION DATE: 05/27/201537 TAP DANCER: MARITO 05/27/201537 RPT#: [id number] DC DATE: STATUS: ADM IN [facility] [address] [place] [address] END OF REPORT
--- NOTE | 2020-05-27 16:16 | MORECARE ---
CASE MANAGEMENT DISCHARGE SUMMARY PATIENT: MARK NDIAYE UNIT: [id number] ADM DATE: 05/19/20 AGE: 74 : 47 SEX: F ROOM/BED: D.2213 AUTHOR: GABY,DOC PHYSICIAN: REFERRING PHYSICIAN: DANETTE CHAVEZ MD DATE OF SERVICE: 05/27/20 Case Management Discharge Planning Summary COMMENTS ENTERED DATE: 05/27/20 16:05 CT COMMENT TYPE: Discharge Planning REVIEWER: Marion RIGGS WITH [facility] CALLED ANDSTATED THAT ARETHA ( THE DON ) WILL BE WORKING THIS WEEKEND AND IF SHE GETS THE AUTH SHE WILL REACH OUT TO US ENTERED DATE: 05/27/20 15:29 CT COMMENT TYPE: Discharge Planning REVIEWER: Marion Gamez RECEIVED A CALL FROM [facility] AT [facility] STATING THAT THEY HAVE APPROVAL, BUT ARE PENDING THE DATES SHE IS APRROVED SHE WILL REACH OUT TO US WHEN SHE RECEIVES THAT INFORMATION I ALSO REACHED OUT TO HER TO GET AN UPDATE AND LEFT A MESSAGE FOR HER TO CALL ME ENTERED DATE: 05/26/20 13:39 CT COMMENT TYPE: Discharge Planning REVIEWER: Marion Gamez PATIENT WAS DENIED INPATIENT REHAB, I SPOKE WITH THE PATIENT TO SEE IF SHE WOULD LIKE TO GO TO A SKILLED FACILITY AND SHE WOULD, REFERRAL TO BE SENT TO [facility] NURSING ENTERED DATE: 05/24/20 10:41 CT COMMENT TYPE: Discharge Planning REVIEWER: Marion Gamez CM met with patient & her sisters to complete initial dc planning assessment. CM educated patient on the CM role and verbal consent given by patient to complete assessment. Patient lives at home where she had been independent. Per one sister she was getting dizzy at home and she had just bought her a walker before she fell. She stated that her son had been helping take her to get her medications and md appointments. Dr Pringle is her PCP. At discharge patient would like to go to inpatient rehab as long as she has a private room and feels this is a safe discharge. CM discussed availability of home health, rehab services, and medical equipment. She uses home O2 and portable. she gets her O2 DME from [facility]. PHILLIP has been signed for Inpatient rehab. Patient denied known discharge needs at this time. CM will continue to follow and will assist as needed with dc plans/needs. DCP REVIEW SUMMARY ANTICIPATED D/C DATE: EXPECTED LOS : CASE STATUS: DCP Initiated INITIAL REVIEW: 05/19/2020 INITIAL REVIEWER: Marion Gamez FINAL DISCHARGE DISPOSITION: : FINAL REVIEWER: FINAL REVIEW DATE: DCP Focus Questions & Answers DCP Screen QUESTION: ANSWER High Risk Factors: : Hosp related to CHF, COPD, DM, End Stage Ds, CVA, CA DCP Evaluation QUESTION: ANSWER Patient and/or caregiver agree upon recommended discharge plan? : Yes Patient's current cognitive status: : Intermittently confused / memory changes Patient's ability to cope with chronic illness : d. No chronic illness Patient gives permission to discuss discharge plans with: (name, relationship and number) : ALL SISTERS AND SON Family / Caregiver's ability to cope with chronic illness: : a. Adequate (ability to meet patient's medical needs, ensures patient attends medical appts.) Alternate discharge plan (if recommended plan not agreed upon by patient and/or caregiver): : 1)INPATIENT REHAB WOULD LIKE A PRIVATE ROOM 2) SKILLED Does the patient have the ability to pay for or attain post discharge needs / services? : Yes Functional screen assessment: : Unable to manage ADLs without immediate ongoing assistance Functional screen assessment: : New onset in difficulty in gait, balance, or transfer difficulties Family / Caregiver's ability to cope with chronic illness: : b. Minimal (occasionally not dependable to meet pt's. needs, can meet pt's. basic ADL's) Physical Status: : Mobility impaired Is there a likelihood that the patient will require additional services to return to the preadmission environment? : Yes Living Arrangements: : Home Alone with Support Partial Dependence, assistance required for: : Bathing Results of this evaluation have been discussed with: : Family Results of this evaluation have been discussed with: : Patient Patient with capacity for self-care or can be cared for in same environment as prior to hospitalization? : No Baseline cognitive status: : *Oriented to person, place, situation, time and present Living arrangements comments: : LIVES ALONE HAS GOOD SUPPORT SYSTEM Comments: : DR PRINGLE IS PCP [facility]- FOR HOME O2 Physical environment modification needed / anticipated for discharge: : Yes Medication Management: : Patient states can afford medications Planned post hospital services available for patient? : Yes Pharmacy name(s): : [facility] IN [place] Does Patient have transportation to get home and to follow-up medical appointments when discharged from the hospital? : Yes Comments: : HER SON HELPS Would patient like to participate in any Care Coordination programs (if applicable): : Not applicable Does the patient have electricity at home? : Yes Does the patient have running water in their house? : Yes Equipment in use: : Home Oxygen with Nasal Cannula Equipment in use: : Walker - Rollator Other Equipment comments: : HAS A WALKER, BUT WAS NOT USING IT Mental health screen: : No mental health history Psychosocial status: : Adult with physical limitations DCP Re-evaluation QUESTION: ANSWER Would patient like to participate in any Care Coordination programs (if applicable): : Not applicable PATIENT: MARK NDIAYE ENCOUNTER: [id number] MEDICAL RECORD#: [id number] ADMISSION DATE: 05/19/2020 DISCHARGE DATE: ATTENDING MD: DANETTE ALAN : AGE: 74 MARITAL STATUS: W DC PLAN ID: [id number] FACILITY: [facility] PRINTED ON: 05/27/20 16:16 CT All edits/amendments must be made on the electronic document DICTATION DATE: 05/27/201615 TABULAR TYPIST: DM 05/27/201615 RPT#: [id number] DC DATE: STATUS: ADM IN [facility] [address] [place] [address] END OF REPORT
[2020-05-27 17:11] VITALS: BP 123/67
[2020-05-27 21:13] VITALS: BP 130/70
[2020-05-28 00:38] VITALS: BP 105/64
--- NOTE | 2020-05-28 03:00 | NUR ---
I have reviewed this patient and I concur with the Shift Assessment completed by the Licensed Practical Nurse today this shift.
--- NOTE | 2020-05-28 03:19 | NUR ---
ASSISTED PT TO BATHROOM. PT HAD LOOSE STOOL. PT HAS BEEN COUGHING DURING THE NIGHT NO FLEM PRODUCTION. WILL CONT TO MONITOR PT.
[2020-05-28 05:24] VITALS: BP 112/70
[2020-05-28 07:21] LABS: BASOPHILS 0.2 % (0-2); EOSINOPHILS 1.1 % (0-7); HEMATOCRIT 38.2 % (36.0-48.0); HEMOGLOBIN 11.5 g/dL (12-16); IMMATURE GRANULOCYTES 0.2 % (0-5); LYMPHOCYTE ABS# 0.69 10x3/uL (1.18-3.74); LYMPHOCYTES 15.8 % (15-50); MCH 30.7 pg (26.0-34.0); MCHC 30.1 g/dL (31.0-37.0); MCV 102.1 fL (80.0-100.0); MEAN PLATELET VOLUME 10.4 fL (7.4-10.4); MONOCYTES 9.8 % (2-11); NEUTROPHIL ABS# 3.19 10x3/uL (1.56-6.13); NEUTROPHILS 72.9 % (40-80); PLATELET COUNT 133 10x3/uL (130-400); RBC 3.74 10x6/uL (4.00-5.40); RDW 15.5 % (11.5-14.5); WBC 4.4 10x3/uL (4.8-10.8)
[2020-05-28 07:26] LABS: ALBUMIN 2.3 g/dL (3.4-5.0); ALKALINE PHOSPHATASE 228 U/L (30-120); ALT (SGPT) 47 U/L (10-68); BILIRUBIN - TOTAL 1.39 mg/dL (0.2-1.3); CALC OSMOLALITY 281 mosm/kg (275-300); CHLORIDE - SERUM 105 mmol/L (98-107); CREATININE - SERUM 0.6 mg/dL (0.6-1.3); GLUCOSE 107 mg/dL (74-106); POTASSIUM - SERUM 3.7 mmol/L (3.5-5.1); PROTEIN - SERUM 6.2 g/dL (6.4-8.2); SODIUM 142 mmol/L (136-145); UREA NITROGEN 9 mg/dL (7-18); eGFR NON AFRICAN AMERICAN > 90 mL/min (90-120)
[2020-05-28 09:29] VITALS: BP 112/63
--- NOTE | 2020-05-28 09:46 | NUR ---
RESTING IN BED, NO DISTRESS NOTED, IV INFUSING, ABD DISTENDED, BOWEL SOUNDS PRESENT, CONT TO MONITOR
[2020-05-28 14:22] VITALS: BP 116/61
[2020-05-28 19:04] VITALS: BP 115/70
--- NOTE | 2020-05-28 20:30 | NUR ---
AWAKE,ALERT.NO COMPLAINTS VOICED. RESP EVEN AND UNALBORED. NO DISTRESS NOTED. IV TO LFA INTACT WITHOUT REDNESS OR EDEMA NOTED. CL IN REACH
[2020-05-28 22:27] VITALS: BP 120/58
--- NOTE | 2020-05-29 02:09 | NUR ---
I have reviewed this patient and I concur with the Shift Assessment completed by the Licensed Practical Nurse today this shift.
[2020-05-29 05:28] LABS: BASOPHILS 0.2 % (0-2); EOSINOPHILS 0.4 % (0-7); HEMATOCRIT 38.9 % (36.0-48.0); HEMOGLOBIN 11.4 g/dL (12-16); IMMATURE GRANULOCYTES 0.1 % (0-5); LYMPHOCYTE ABS# 0.68 10x3/uL (1.18-3.74); LYMPHOCYTES 8.3 % (15-50); MCHC 29.3 g/dL (31.0-37.0); MCV 102.4 fL (80.0-100.0); MEAN PLATELET VOLUME 10.2 fL (7.4-10.4); MONOCYTES 9.4 % (2-11); NEUTROPHIL ABS# 6.64 10x3/uL (1.56-6.13); NEUTROPHILS 81.6 % (40-80); PLATELET COUNT 142 10x3/uL (130-400); RDW 15.7 % (11.5-14.5)
[2020-05-29 05:41] LABS: WBC 8.2 10x3/uL (4.8-10.8)
[2020-05-29 05:54] LABS: ALBUMIN 2.3 g/dL (3.4-5.0); ALKALINE PHOSPHATASE 226 U/L (30-120); ALT (SGPT) 40 U/L (10-68); BILIRUBIN - TOTAL 1.58 mg/dL (0.2-1.3); CALC OSMOLALITY 282 mosm/kg (275-300); CARBON DIOXIDE 33.1 mmol/L (21.0-32.0); CHLORIDE - SERUM 104 mmol/L (98-107); CREATININE - SERUM 0.5 mg/dL (0.6-1.3); GLUCOSE 110 mg/dL (74-106); POTASSIUM - SERUM 3.8 mmol/L (3.5-5.1); PROTEIN - SERUM 6.3 g/dL (6.4-8.2); SODIUM 142 mmol/L (136-145); UREA NITROGEN 10 mg/dL (7-18); eGFR NON AFRICAN AMERICAN > 90 mL/min (90-120)
[2020-05-29 06:42] VITALS: BP 120/59
[2020-05-29 09:47] VITALS: BP 113/65
--- NOTE | 2020-05-29 10:10 | NUR ---
RESTING IN BED, NO DISTRESS NOTED, IV INFUSING, O2 AT 2L, CONT TO MONITOR SUGARS AND ABD DISTENTION
[2020-05-29 13:51] VITALS: BP 116/57; BP 142/74
[2020-05-29 18:20] VITALS: BP 127/62
--- NOTE | 2020-05-29 18:20 | NUR ---
DRESSING CHANGED TO PT COCCYX, PT C/O DRAINING FROM WOUND AND WAS TEARFUL, MEDICATED WITH DILAUDID AND ZOFRAN, CONT TO MONITOR
--- NOTE | 2020-05-29 19:00 | NUR ---
BEDSIDE REPORT RECEIVED AND CARE OF PT ASSUMED. PT LYING IN LOW CERDA'S POSITION WITH EYES CLOSED AND EASY RESPIRATIONS. IV TO LEFT FA PATENT WITH NS INFUSING AT 75 ML/HR. WILL MONITOR FOR NEEDS.
--- NOTE | 2020-05-29 21:05 | NUR ---
FSBS 154 THIS CHECK. DID NOT COVER PER SLIDING SCALE PT ONLY CONSUMED 10% OF HER DINNER TRAY.
[2020-05-29 22:06] VITALS: BP 135/68
[2020-05-30 00:13] VITALS: BP 117/62
[2020-05-30 07:01] LABS: BASOPHILS 0.2 % (0-2); HEMATOCRIT 39.2 % (36.0-48.0); HEMOGLOBIN 11.4 g/dL (12-16); IMMATURE GRANULOCYTES 0.2 % (0-5); LYMPHOCYTE ABS# 0.58 10x3/uL (1.18-3.74); LYMPHOCYTES 11.3 % (15-50); MCH 30.2 pg (26.0-34.0); MCHC 29.1 g/dL (31.0-37.0); MCV 103.7 fL (80.0-100.0); MEAN PLATELET VOLUME 10.2 fL (7.4-10.4); MONOCYTES 9.7 % (2-11); NEUTROPHILS 77.6 % (40-80); PLATELET COUNT 129 10x3/uL (130-400); RBC 3.78 10x6/uL (4.00-5.40); RDW 15.9 % (11.5-14.5)
[2020-05-30 07:07] LABS: WBC 5.2 10x3/uL (4.8-10.8)
[2020-05-30 07:21] LABS: ALBUMIN 2.2 g/dL (3.4-5.0); ALKALINE PHOSPHATASE 221 U/L (30-120); ALT (SGPT) 37 U/L (10-68); BILIRUBIN - TOTAL 1.45 mg/dL (0.2-1.3); CALC OSMOLALITY 282 mosm/kg (275-300); CALCIUM 9.1 mg/dL (8.5-10.1); CARBON DIOXIDE 33.7 mmol/L (21.0-32.0); CHLORIDE - SERUM 103 mmol/L (98-107); CREATININE - SERUM 0.5 mg/dL (0.6-1.3); GLUCOSE 109 mg/dL (74-106); POTASSIUM - SERUM 3.7 mmol/L (3.5-5.1); PROTEIN - SERUM 6.3 g/dL (6.4-8.2); SODIUM 142 mmol/L (136-145); UREA NITROGEN 11 mg/dL (7-18); eGFR NON AFRICAN AMERICAN > 90 mL/min (90-120)
[2020-05-30 08:43] VITALS: BP 121/66
--- NOTE | 2020-05-30 09:00 | NUR ---
RECIEVED BEDSIDE REPORT. BED LOW POSITION, CALL LIGHT IN REACH. PATIENT AROUSES TO VOICE, CONFUSED TO PLACE. NASAL CANNULA IN PLACE. WILL CONTINUE TO MONITOR.
[2020-05-30 10:31] LABS: INR 1.27 (0.85-1.17); PROTIME 14.7 SECONDS (11.6-15.0)
--- NOTE | 2020-05-30 12:52 | NUR ---
OT NOTE: PT ATTEMPTED SUPINE TO SIT WITH MIGDALIA . PT UNABLE TO COMPLETE TASK. NURSING NOTIFIED. NURSING IN ROOM...NURSING CHECKED BLOOD SUGAR LEVEL AND 02 SATS. NURSING STATED HOLD FURTHER TREATMENT. [phone] THANK YOU,RICHIE TATE
[2020-05-30 13:46] LABS: CREATINE KINASE 74 UL (21-215); TROPONIN-I < 0.017 ng/mL (0.000-0.060)
--- NOTE | 2020-05-30 15:50 | NUR ---
CHECKED ON PT. BIPAP IN PLACE. OXYGEN SATURATION AT 95%. HEART RATE AT 78 BPM. STILL LETHARGIC. WILL CONTINUE TO MONITOR.
--- NOTE | 2020-05-30 16:05 | NUR ---
RESIDENTIAL ADVISOR LIGHT. FAMILY IN ROOM. REQUESTING A DRINK OF WATER. REMOVED MASK FOR A MINUTE, GAVE DRINK AND REPLACED BIPAP. PATIENT MORE ALERT, STILL CONFUSED. HAS NO RECOLLECTION OF THIS MORNING. DENIES FURTHER NEEDS AT THIS TIME. WILL CONTINUE TO MONITOR.
--- NOTE | 2020-05-30 16:46 | NUR ---
SECOND SET OF ABG'S RESULTED. SPOKE TO DR. VENTURA, WELL KRISH MANTILLA APN, GAVE RESULTS.
[2020-05-30 17:30] VITALS: BP 108/58
[2020-05-30 20:17] LABS: CREATINE KINASE 70 UL (21-215)
[2020-05-30 20:21] LABS: TROPONIN-I < 0.017 ng/mL (0.000-0.060)
[2020-05-31] VITALS: BP 95/55
[2020-05-31 01:32] LABS: CKMB 1.6 U/L (0.0-3.6); CREATINE KINASE 72 UL (21-215)
[2020-05-31 01:35] LABS: TROPONIN-I 0.016 ng/mL (0.000-0.060)
[2020-05-31 05:47] LABS: BASOPHILS 0.2 % (0-2); EOSINOPHILS 1.2 % (0-7); HEMATOCRIT 35.3 % (36.0-48.0); HEMOGLOBIN 10.5 g/dL (12-16); IMMATURE GRANULOCYTES 0.2 % (0-5); LYMPHOCYTES 16.3 % (15-50); MCH 30.5 pg (26.0-34.0); MCHC 29.7 g/dL (31.0-37.0); MCV 102.6 fL (80.0-100.0); MEAN PLATELET VOLUME 10.2 fL (7.4-10.4); MONOCYTES 11.4 % (2-11); NEUTROPHIL ABS# 3.47 10x3/uL (1.56-6.13); NEUTROPHILS 70.7 % (40-80); PLATELET COUNT 119 10x3/uL (130-400); RBC 3.44 10x6/uL (4.00-5.40); WBC 4.9 10x3/uL (4.8-10.8)
[2020-05-31 06:22] LABS: ALBUMIN 2.3 g/dL (3.4-5.0); ALKALINE PHOSPHATASE 198 U/L (30-120); ALT (SGPT) 37 U/L (10-68); BILIRUBIN - TOTAL 1.77 mg/dL (0.2-1.3); CALC OSMOLALITY 282 mosm/kg (275-300); CALCIUM 8.9 mg/dL (8.5-10.1); CARBON DIOXIDE 30.5 mmol/L (21.0-32.0); CHLORIDE - SERUM 105 mmol/L (98-107); CREATININE - SERUM 0.6 mg/dL (0.6-1.3); POTASSIUM - SERUM 3.9 mmol/L (3.5-5.1); PROTEIN - SERUM 5.4 g/dL (6.4-8.2); SODIUM 143 mmol/L (136-145); UREA NITROGEN 13 mg/dL (7-18); eGFR NON AFRICAN AMERICAN > 90 mL/min (90-120)
[2020-05-31 06:25] LABS: GLUCOSE 65 mg/dL (74-106)
--- NOTE | 2020-05-31 07:27 | NUR ---
RECIEVED BEDSIDE REPORT. IN BED, AROUSES TO VOICE. DENIES NEEDS AT THIS TIME. MUCH MORE AWAKE TODAY. NASAL CANNULA IN PLACE. MELLISSA ALARM ON. BED LOW POSITION, CALL LIGHT IN REACH. WILL CONTINUE TO MONITOR.
--- NOTE | 2020-05-31 07:37 | NUR ---
PATIENT TOLERATED BIPAP ALL NIGHT WITHOUT PROBLEMS. THIS AM HER BG WAS 65 SHE WAS GLUCOSE GEL AND IT CAME UP TO 92.
--- NOTE | 2020-05-31 07:40 | MORECARE ---
CASE MANAGEMENT DISCHARGE SUMMARY PATIENT: MARK NDIAYE UNIT: [id number] ADM DATE: 05/19/20 AGE: 74 : 46 SEX: F ROOM/BED: D.2213 AUTHOR: GABY,DOC PHYSICIAN: REFERRING PHYSICIAN: DANETTE CHAVEZ MD DATE OF SERVICE: 05/31/20 Case Management Discharge Planning Summary COMMENTS ENTERED DATE: 05/31/20 7:30 CT COMMENT TYPE: Discharge Planning REVIEWER: Marion Vera LATE ENTRY 05/30 1400 [facility] FROM [facility] CALLED AND STATED THAT SHE HAS RECEIVED AUTH AND CAN BE ACCEPTED WHEN SHE IS STABLE ENTERED DATE: 05/27/20 16:05 CT COMMENT TYPE: Discharge Planning REVIEWER: Marion RIGGS WITH [facility] CALLED ANDSTATED THAT ARETHA ( THE MIREYA ) WILL BE WORKING THIS WEEKEND AND IF SHE GETS THE AUTH SHE WILL REACH OUT TO US ENTERED DATE: 05/27/20 15:29 CT COMMENT TYPE: Discharge Planning REVIEWER: Marion Vera RECEIVED A CALL FROM [facility] AT [facility] STATING THAT THEY HAVE APPROVAL, BUT ARE PENDING THE DATES SHE IS APRROVED SHE WILL REACH OUT TO US WHEN SHE RECEIVES THAT INFORMATION I ALSO REACHED OUT TO HER TO GET AN UPDATE AND LEFT A MESSAGE FOR HER TO CALL ME ENTERED DATE: 05/26/20 13:39 CT COMMENT TYPE: Discharge Planning REVIEWER: Marion Gamez PATIENT WAS DENIED INPATIENT REHAB, I SPOKE WITH THE PATIENT TO SEE IF SHE WOULD LIKE TO GO TO A SKILLED FACILITY AND SHE WOULD, REFERRAL TO BE SENT TO [facility] ENTERED DATE: 05/24/20 10:41 CT COMMENT TYPE: Discharge Planning REVIEWER: Marion Gamez CM met with patient & her sisters to complete initial dc planning assessment. CM educated patient on the CM role and verbal consent given by patient to complete assessment. Patient lives at home where she had been independent. Per one sister she was getting dizzy at home and she had just bought her a walker before she fell. She stated that her son had been helping take her to get her medications and md appointments. Dr Pringle is her PCP. At discharge patient would like to go to inpatient rehab as long as she has a private room and feels this is a safe discharge. CM discussed availability of home health, rehab services, and medical equipment. She uses home O2 and portable. she gets her O2 DME from [facility]. PHILLIP has been signed for Inpatient rehab. Patient denied known discharge needs at this time. CM will continue to follow and will assist as needed with dc plans/needs. DCP REVIEW SUMMARY ANTICIPATED D/C DATE: EXPECTED LOS : CASE STATUS: DCP Initiated INITIAL REVIEW: 05/19/2020 INITIAL REVIEWER: Marion Gamez FINAL DISCHARGE DISPOSITION: : FINAL REVIEWER: FINAL REVIEW DATE: DCP Focus Questions & Answers DCP Screen QUESTION: ANSWER High Risk Factors: : Hosp related to CHF, COPD, DM, End Stage Ds, CVA, CA DCP Evaluation QUESTION: ANSWER Patient and/or caregiver agree upon recommended discharge plan? : Yes Family / Caregiver's ability to cope with chronic illness: : a. Adequate (ability to meet patient's medical needs, ensures patient attends medical appts.) Patient's current cognitive status: : Intermittently confused / memory changes Patient's ability to cope with chronic illness : d. No chronic illness Patient gives permission to discuss discharge plans with: (name, relationship and number) : ALL SISTERS AND SON Alternate discharge plan (if recommended plan not agreed upon by patient and/or caregiver): : 1)INPATIENT REHAB WOULD LIKE A PRIVATE ROOM 2) SKILLED Does the patient have the ability to pay for or attain post discharge needs / services? : Yes Functional screen assessment: : New onset in difficulty in gait, balance, or transfer difficulties Functional screen assessment: : Unable to manage ADLs without immediate ongoing assistance Family / Caregiver's ability to cope with chronic illness: : b. Minimal (occasionally not dependable to meet pt's. needs, can meet pt's. basic ADL's) Physical Status: : Mobility impaired Is there a likelihood that the patient will require additional services to return to the preadmission environment? : Yes Living Arrangements: : Home Alone with Support Partial Dependence, assistance required for: : Bathing Results of this evaluation have been discussed with: : Patient Results of this evaluation have been discussed with: : Family Patient with capacity for self-care or can be cared for in same environment as prior to hospitalization? : No Living arrangements comments: : LIVES ALONE HAS GOOD SUPPORT SYSTEM Baseline cognitive status: : *Oriented to person, place, situation, time and present Physical environment modification needed / anticipated for discharge: : Yes Comments: : DR PRINGLE IS PCP [facility]- FOR HOME O2 Medication Management: : Patient states can afford medications Planned post hospital services available for patient? : Yes Pharmacy name(s): : [facility] IN [place] Does Patient have transportation to get home and to follow-up medical appointments when discharged from the hospital? : Yes Would patient like to participate in any Care Coordination programs (if applicable): : Not applicable Comments: : HER SON HELPS Does the patient have electricity at home? : Yes Does the patient have running water in their house? : Yes Equipment in use: : Walker - Rollator Equipment in use: : Home Oxygen with Nasal Cannula Other Equipment comments: : HAS A WALKER, BUT WAS NOT USING IT Mental health screen: : No mental health history Psychosocial status: : Adult with physical limitations DCP Re-evaluation QUESTION: ANSWER Would patient like to participate in any Care Coordination programs (if applicable): : Not applicable PATIENT: MARK NDIAYE ENCOUNTER: [id number] MEDICAL RECORD#: [id number] ADMISSION DATE: 05/19/2020 DISCHARGE DATE: ATTENDING MD: DANETTE ALAN : AGE: 74 MARITAL STATUS: W DC PLAN ID: [id number] FACILITY: [facility] PRINTED ON: 05/31/20 7:40 CT All edits/amendments must be made on the electronic document DICTATION DATE: 05/31/20739 FRONT DESK AGENT: MARITO 05/31/20739 RPT#: [id number] DC DATE: STATUS: ADM IN [facility] [address] [place] [address] END OF REPORT
[2020-05-31 08:45] VITALS: BP 118/72
--- NOTE | 2020-05-31 13:39 | NUR ---
Nutrition Re-assessment: Diet: Low Sodium PO intake: 20-25% x 3 meals yesterday. She ate 50% of breakfast this morning and states her appetite is improved today. Last BM: 05/30/20 Wt: 151# (05/23/20)- no new weight Meds noted: NS@30, SSI Labs noted: Glu 65(L), POC Glu 122(H), alb 2.3(L) Estimated nutrition needs and nutrition diagnosis remain unchanged from initial nutrition assessment at this time. Patient is progressing towards meeting nutrition goals at this time. Recommendations/Interventions: -Consider liberalizing diet to regular 2/2 patient's advanced age and inadequate PO intake. -Will continue to honor food preferences within diet restrictions. -Will add Ensure with meals. -RD will follow-up 06/03/20.
[2020-05-31 14:00] VITALS: BP 122/53
--- NOTE | 2020-05-31 14:40 | NUR ---
TO PROCEDURE VIA WHEELCHAIR AT THIS TIME.
--- NOTE | 2020-05-31 15:11 | NUR ---
BACK IN ROOM. SETTLED IN TO BED, MELLISSA ALARM ON. CALL LIGHT IN REACH. OXYGEN SATURATION AT 95%. HEART RATE 89. WILL CONTINUE TO MONITOR.
--- NOTE | 2020-05-31 16:43 | NUR ---
OT NOTE: PT DID WELL TODAY. PT COMPLETED SUPINE TO SIT WITH MIN A. PT COMPLETED EOB SITTING WITH CGA. PT COMPLETED SIT TO STAND WITH CGA. PT COMPLETED FACE AND HAND HYGIENE WITH SETUP. PT COMPLETED HAIR GROOMING WITH SETUP. PT REQUIRED REST BREAKS. [phone] THANK YOU,RICHIE TATE
--- NOTE | 2020-05-31 17:02 | NUR ---
OT NOTE: PT PERFORMED MUCH BETTER TODAY. ALERT AND ORIENTED.. MUCH STRONGER..ABLE TO PERFORM BED MOB WITH MIN ASSIST; SIT TO STAND WITH MIN ASSIST; AMB IN ROOM WITH WALKER AND CGA; TOILET TRANFSERS WITH MIN ASSIST; HYGIENE WITH MOD ASSIST; SINK [id number] WITH CGA FOR STANDING BALANCE AT SINK SCOTT STEPHEN, OTR/L [phone]
[2020-05-31 17:29] VITALS: BP 142/56
--- NOTE | 2020-05-31 19:00 | NUR ---
FOUND BROKEN TOOTH ON PATIENT BEDSIDE TABLE. WHEN ASKED PATIENT SAID SHE BROKE IT DURING DINNER. PUT TOOTH IN A CUP WITH A LID. NOTIFIED CHARGE NURSE KAROLYN GORE RN. SHE THEN CALLED VOICE DATA COMMUNICATIONS ENGINEER TO NOTIFY. WHEN I NOTIFIED FAMILY OF INCIDENT, THEY STATED THAT THEY ALREADY KNEW IT HAPPEND, THAT THEY WERE HELPING HER EAT WHEN IT BROKE. [facility] AND SCENERY MAKER NOTIFIED WELL. PATIENT DENIES PAIN AT THIS TIME.
[2020-05-31 20:00] VITALS: BP 116/72
[2020-06-01] VITALS: BP 105/61
--- NOTE | 2020-06-01 01:31 | NUR ---
REC'D CHGE OF SHIFT WALKING ROUNDS SUPINE POSITION HOB UP 30 DEGREE'S. RESP DEEP WITH EXPIRATORY WHEEZING AUDIBLE.02 3L NC.NO FURTHER RESP DISTRESS OBSERVED. WILL CONTINUE TO MONITOR FOR ANY FURTHER RESP. CHGES. AND JEAN-PIERREOE CURRENT PLAN OF CARE.
--- NOTE | 2020-06-01 02:42 | NUR ---
I have reviewed this patient and I concur with the Shift Assessment completed by the Licensed Practical Nurse today this shift.
[2020-06-01 04:00] VITALS: BP 123/63
[2020-06-01 07:17] LABS: BASOPHILS 0.2 % (0-2); EOSINOPHILS 0.9 % (0-7); HEMATOCRIT 37.7 % (36.0-48.0); HEMOGLOBIN 11.1 g/dL (12-16); IMMATURE GRANULOCYTES 0.2 % (0-5); LYMPHOCYTE ABS# 0.66 10x3/uL (1.18-3.74); MCH 30.3 pg (26.0-34.0); MCHC 29.4 g/dL (31.0-37.0); MEAN PLATELET VOLUME 10.6 fL (7.4-10.4); MONOCYTES 11.3 % (2-11); NEUTROPHIL ABS# 3.19 10x3/uL (1.56-6.13); NEUTROPHILS 72.4 % (40-80); PLATELET COUNT 122 10x3/uL (130-400); RBC 3.66 10x6/uL (4.00-5.40); RDW 16.1 % (11.5-14.5); WBC 4.4 10x3/uL (4.8-10.8)
[2020-06-01 07:48] LABS: ALBUMIN 2.3 g/dL (3.4-5.0); ALKALINE PHOSPHATASE 208 U/L (30-120); ALT (SGPT) 37 U/L (10-68); BILIRUBIN - TOTAL 1.75 mg/dL (0.2-1.3); CALC OSMOLALITY 283 mosm/kg (275-300); CALCIUM 9.1 mg/dL (8.5-10.1); CHLORIDE - SERUM 104 mmol/L (98-107); CREATININE - SERUM 0.7 mg/dL (0.6-1.3); GLUCOSE 98 mg/dL (74-106); POTASSIUM - SERUM 3.4 mmol/L (3.5-5.1); PROTEIN - SERUM 5.9 g/dL (6.4-8.2); SODIUM 143 mmol/L (136-145); UREA NITROGEN 11 mg/dL (7-18); eGFR NON AFRICAN AMERICAN 87 mL/min (90-120)
--- NOTE | 2020-06-01 07:53 | NUR ---
RESTING IN BED WITH EYES CLOSED, CURRENTLY ON BIPAP. IV LOCATED TO LEFT FOREARM CURRENTLY RUNNING NS @ 30ML. PUREWICK IN PLACE. NO CURRENT S/S OF DISTRESS, WILL CONT TO MONITOR.
[2020-06-01 08:47] VITALS: BP 143/78
[2020-06-01 12:25] VITALS: BP 121/57
--- NOTE | 2020-06-01 16:34 | NUR ---
OT NOTE:(AM) PT COMPLETED SUPINE TO SIT WITH MIN A. PT COMPLETED EOB SITTING WITH CGA. PT COMPLETED BED TO CHAIR TSF WITH MIN A. PT EASILY FATIGUED. PT COMPLETED HAIR GROOMING WITH SETUP. PT COMPLETED FACE HYGIENE WITH SETUP. (PM) PT REQUIRED MIN-MOD A FOR CHAIR TO BED TSF. PT REQUIRED MIN A FOR SIT TO SUPINE. PT REQUIRED MAX A FOR UPWARD POSITIONING IN BED. PT REQUIRED LB HYGIENE WITH MAX A. NOTIFIIED NURSING THAT PT WAS LETHARGIC. NURSING ASSESSED AT BEDSIDE. [id number] THANK YOU,RICHIE TATE
[2020-06-01 16:57] VITALS: BP 110/65
[2020-06-01 20:00] VITALS: BP 157/64
--- NOTE | 2020-06-01 20:40 | NUR ---
rec'd walking rounds chge of shift.in bed bipap on.awake. requesting nc instructed states needs to be in bipap continuously because of blood gases not being in range of normal levels voices ok will leave on.continues to have sob on minimal activity.no further resp. difficulty observed will continue to monitor for any chges and follow current plan of care
[2020-06-02] VITALS (15 sets, daily range): BP systolic 97–117; BP diastolic 49–72
[2020-06-02 06:09] LABS: BASOPHILS 0.1 % (0-2); EOSINOPHILS 0 % (0-7); HEMATOCRIT 36.5 % (36.0-48.0); IMMATURE GRANULOCYTES 0.2 % (0-5); LYMPHOCYTE ABS# 0.89 10x3/uL (1.18-3.74); LYMPHOCYTES 10.7 % (15-50); MCH 30.4 pg (26.0-34.0); MCHC 30.1 g/dL (31.0-37.0); MEAN PLATELET VOLUME 10.3 fL (7.4-10.4); MONOCYTES 7.8 % (2-11); NEUTROPHIL ABS# 6.72 10x3/uL (1.56-6.13); NEUTROPHILS 81.2 % (40-80); PLATELET COUNT 113 10x3/uL (130-400); RBC 3.62 10x6/uL (4.00-5.40); RDW 16.3 % (11.5-14.5)
[2020-06-02 06:15] LABS: MCV 100.8 fL (80.0-100.0); WBC 8.3 10x3/uL (4.8-10.8)
[2020-06-02 06:35] LABS: ALBUMIN 2.2 g/dL (3.4-5.0); ANION GAP 8.7 mmol/L (8-16); BILIRUBIN - TOTAL 2.36 mg/dL (0.2-1.3); CALCIUM 8.9 mg/dL (8.5-10.1); CARBON DIOXIDE 32.8 mmol/L (21.0-32.0); CREATININE - SERUM 0.8 mg/dL (0.6-1.3); POTASSIUM - SERUM 3.5 mmol/L (3.5-5.1); PROTEIN - SERUM 5.7 g/dL (6.4-8.2)
[2020-06-02 06:37] LABS: INR 1.37 (0.85-1.17); PROTIME 15.6 SECONDS (11.6-15.0)
--- NOTE | 2020-06-02 09:34 | MORECARE ---
CASE MANAGEMENT DISCHARGE SUMMARY PATIENT: MARK NDIAYE UNIT: [id number] ADM DATE: 05/19/20 AGE: 74 : 46 SEX: F ROOM/BED: D.2213 AUTHOR: GABY,DOC PHYSICIAN: REFERRING PHYSICIAN: DANETTE CHAVEZ MD DATE OF SERVICE: 06/02/20 Case Management Discharge Planning Summary COMMENTS ENTERED DATE: 06/02/20 9:22 CT COMMENT TYPE: Discharge Planning REVIEWER: Marion Gamez PATIENTS AUTH HAS AT [facility] AND THEY WILL HAVE TO GET ANOTHER AUTH WHEN STABLE I HAVE CONTACTED SHERYL AT [facility] TO START THE PROCESS TO GET HER APPROVED FOR A TRILOGY ENTERED DATE: 05/31/20 7:30 CT COMMENT TYPE: Discharge Planning REVIEWER: Marion Gamez LATE ENTRY 05/30 Elaine RIGGS FROM [facility] CALLED AND STATED THAT SHE HAS RECEIVED AUTH AND CAN BE ACCEPTED WHEN SHE IS STABLE ENTERED DATE: 05/27/20 16:05 CT COMMENT TYPE: Discharge Planning REVIEWER: Marion RIGGS WITH [facility] CALLED ANDSTATED THAT ARETHA ( THE DON ) WILL BE WORKING THIS WEEKEND AND IF SHE GETS THE AUTH SHE WILL REACH OUT TO US ENTERED DATE: 05/27/20 15:29 CT COMMENT TYPE: Discharge Planning REVIEWER: Marion Gamez RECEIVED A CALL FROM [facility] AT [facility] STATING THAT THEY HAVE APPROVAL, BUT ARE PENDING THE DATES SHE IS APRROVED SHE WILL REACH OUT TO US WHEN SHE RECEIVES THAT INFORMATION I ALSO REACHED OUT TO HER TO GET AN UPDATE AND LEFT A MESSAGE FOR HER TO CALL ME ENTERED DATE: 05/26/20 13:39 CT COMMENT TYPE: Discharge Planning REVIEWER: Marion Vera PATIENT WAS DENIED INPATIENT REHAB, I SPOKE WITH THE PATIENT TO SEE IF SHE WOULD LIKE TO GO TO A SKILLED FACILITY AND SHE WOULD, REFERRAL TO BE SENT TO [facility] ENTERED DATE: 05/24/20 10:41 CT COMMENT TYPE: Discharge Planning REVIEWER: Marion Gamez CM met with patient & her sisters to complete initial dc planning assessment. CM educated patient on the CM role and verbal consent given by patient to complete assessment. Patient lives at home where she had been independent. Per one sister she was getting dizzy at home and she had just bought her a walker before she fell. She stated that her son had been helping take her to get her medications and md appointments. Dr Pringle is her PCP. At discharge patient would like to go to inpatient rehab as long as she has a private room and feels this is a safe discharge. CM discussed availability of home health, rehab services, and medical equipment. She uses home O2 and portable. she gets her O2 DME from [facility]. PHILLIP has been signed for Inpatient rehab. Patient denied known discharge needs at this time. CM will continue to follow and will assist as needed with dc plans/needs. DCP REVIEW SUMMARY ANTICIPATED D/C DATE: EXPECTED LOS : CASE STATUS: DCP Initiated INITIAL REVIEW: 05/19/2020 INITIAL REVIEWER: Marion Gamez FINAL DISCHARGE DISPOSITION: : FINAL REVIEWER: FINAL REVIEW DATE: DCP Focus Questions & Answers DCP Screen QUESTION: ANSWER High Risk Factors: : Hosp related to CHF, COPD, DM, End Stage Ds, CVA, CA DCP Evaluation QUESTION: ANSWER Patient and/or caregiver agree upon recommended discharge plan? : Yes Family / Caregiver's ability to cope with chronic illness: : a. Adequate (ability to meet patient's medical needs, ensures patient attends medical appts.) Patient's current cognitive status: : Intermittently confused / memory changes Patient's ability to cope with chronic illness : d. No chronic illness Patient gives permission to discuss discharge plans with: (name, relationship and number) : ALL SISTERS AND SON Alternate discharge plan (if recommended plan not agreed upon by patient and/or caregiver): : 1)INPATIENT REHAB WOULD LIKE A PRIVATE ROOM 2) SKILLED Does the patient have the ability to pay for or attain post discharge needs / services? : Yes Functional screen assessment: : New onset in difficulty in gait, balance, or transfer difficulties Functional screen assessment: : Unable to manage ADLs without immediate ongoing assistance Family / Caregiver's ability to cope with chronic illness: : b. Minimal (occasionally not dependable to meet pt's. needs, can meet pt's. basic ADL's) Physical Status: : Mobility impaired Is there a likelihood that the patient will require additional services to return to the preadmission environment? : Yes Living Arrangements: : Home Alone with Support Partial Dependence, assistance required for: : Bathing Results of this evaluation have been discussed with: : Patient Results of this evaluation have been discussed with: : Family Patient with capacity for self-care or can be cared for in same environment as prior to hospitalization? : No Living arrangements comments: : LIVES ALONE HAS GOOD SUPPORT SYSTEM Baseline cognitive status: : *Oriented to person, place, situation, time and present Physical environment modification needed / anticipated for discharge: : Yes Comments: : DR PRINGLE IS PCP [facility]- FOR HOME O2 Medication Management: : Patient states can afford medications Planned post hospital services available for patient? : Yes Pharmacy name(s): : [facility] [place] Does Patient have transportation to get home and to follow-up medical appointments when discharged from the hospital? : Yes Would patient like to participate in any Care Coordination programs (if applicable): : Not applicable Comments: : HER SON HELPS Does the patient have electricity at home? : Yes Does the patient have running water in their house? : Yes Equipment in use: : Walker - Rollator Equipment in use: : Home Oxygen with Nasal Cannula Other Equipment comments: : HAS A WALKER, BUT WAS NOT USING IT Mental health screen: : No mental health history Psychosocial status: : Adult with physical limitations DCP Re-evaluation QUESTION: ANSWER Would patient like to participate in any Care Coordination programs (if applicable): : Not applicable PATIENT: MARK NDIAYE ENCOUNTER: [id number] MEDICAL RECORD#: [id number] ADMISSION DATE: 05/19/2020 DISCHARGE DATE: ATTENDING MD: DANETTE ALAN : AGE: 74 MARITAL STATUS: W DC PLAN ID: [id number] FACILITY: [facility] PRINTED ON: 06/02/20 9:34 CT All edits/amendments must be made on the electronic document DICTATION DATE: 06/02/20933 HEAD OF ETHICS AND COMPLIANCE: MARITO 06/02/20933 RPT#: [id number] DC DATE: STATUS: ADM IN [facility] [address] [place] [address] END OF REPORT
--- NOTE | 2020-06-02 12:41 | NUR ---
OT NOTE: NURSING REPORTED THAT PT GOING FOR PROCEDURE AND REQUESTED THAT THERAPY NOT GET HER UP INTO CHAIR. ASSISTED TO EOB WITH MOD ASSIST; SIT TO STAND WITH MIN X 2; ATTEMPTED TO AMB TO BATHROOM WITH ASSIST X 2, HOWEVER, PT UNABLE TO MOVE HER FEET. CONTINUAL VERBAL CUES BUT PT WAS UNABLE TO PERFORM. PT ALMOST IN A DAZE..ASSISTED BACK TO BED WITH MOD ASSIST X 2.. AFTER A FEW SECONDS, PT WAS VERBALLY RESPONDING AGAIN. MAX X 2 TO REPOSITION IN BED.. PTS O2 REMAINED ON AT ALL TIMES. SCOTT STEPHEN, OTR/L [phone]
--- NOTE | 2020-06-02 14:48 | NUR ---
RECEIVED PATIENT BACK FROM IR, VSS, PATIENT ON 6L HF SAT AT 98%. VSS, CL IN REACH CONTINUE WITH PLAN OF CARE
--- NOTE | 2020-06-02 15:01 | NUR ---
PT RETURNS TO ROOM VIA BED. PT IS RESTING WITH EYES CLOSED. RESPIRATIOSN ARE EVEN AND UNLABORED. PT IS AROUSABLE FOR A SHORT PERIOD OF TIME WITH VERBAL STIMULATION. VSS SEE FLOWSHEET. FALL PRECAUTIONS IN PLACE. BED IS IN THE LOWEST POSITION. CALL LIGHT AND BEDSIDE TABLE ARE WITHIN REACH. SIDE RAILS X 2. WILL NOTIFY SHIFT NURSE OF PT ARRIVAL.
--- NOTE | 2020-06-02 16:22 | NUR ---
OT NOTE: PT COMPLETED SUPINE TO SIT WITH MOD-MAX A. PT COMPLETED EOB SITTING WITH MOD A. PT REQUIRED TOTAL A FOR POSITIONING IN BED. PT REQUIRED TOTAL A FOR LB HYGIENE. PT EXHIBITED POOR ENDURANCE. [phone] THANK YOU,RICHIE TATE
[2020-06-03 04:00] VITALS: BP 126/66
--- NOTE | 2020-06-03 05:13 | NUR ---
I have reviewed this patient and I concur with the Shift Assessment completed by the Licensed Practical Nurse today this shift.
--- NOTE | 2020-06-03 05:30 | NUR ---
PT STILL LETHARGIC, BUT ORIENTED TO SELF, DENIES NEED TO VOID. NO INCONTINENT VOIDS SINCE START OF SHIFT. INCONTINENT BM EVIDENT. BED BATH PERFORMED. SLEPT THROUGH IN&OUT CATH FOR UA. 500MLs HUANG-COLORED URINE EMPTIED INTO COLLECTION BAG. WILL PASS IN REPORT TO MONITOR FOR VOID BY [phone]. PT REQUESTING BIPAP TO BE REMOVED. CTM.
[2020-06-03 05:47] LABS: BASOPHILS 0.2 % (0-2); EOSINOPHILS 0.3 % (0-7); HEMATOCRIT 35.6 % (36.0-48.0); HEMOGLOBIN 10.8 g/dL (12-16); IMMATURE GRANULOCYTES 0.2 % (0-5); LYMPHOCYTE ABS# 0.79 10x3/uL (1.18-3.74); LYMPHOCYTES 12.7 % (15-50); MCH 30.5 pg (26.0-34.0); MCHC 30.3 g/dL (31.0-37.0); MCV 100.6 fL (80.0-100.0); MEAN PLATELET VOLUME 10.8 fL (7.4-10.4); MONOCYTES 13.4 % (2-11); NEUTROPHIL ABS# 4.55 10x3/uL (1.56-6.13); NEUTROPHILS 73.2 % (40-80); PLATELET COUNT 105 10x3/uL (130-400); RBC 3.54 10x6/uL (4.00-5.40); RDW 16.7 % (11.5-14.5)
[2020-06-03 05:49] LABS: WBC 6.2 10x3/uL (4.8-10.8)
[2020-06-03 05:54] LABS: ALBUMIN 2.1 g/dL (3.4-5.0); ALKALINE PHOSPHATASE 187 U/L (30-120); ALT (SGPT) 29 U/L (10-68); BILIRUBIN - TOTAL 1.93 mg/dL (0.2-1.3); CALC OSMOLALITY 288 mosm/kg (275-300); CALCIUM 9.1 mg/dL (8.5-10.1); CARBON DIOXIDE 35.5 mmol/L (21.0-32.0); CHLORIDE - SERUM 105 mmol/L (98-107); CREATININE - SERUM 0.7 mg/dL (0.6-1.3); GLUCOSE 138 mg/dL (74-106); POTASSIUM - SERUM 3.6 mmol/L (3.5-5.1); PROTEIN - SERUM 5.8 g/dL (6.4-8.2); SODIUM 143 mmol/L (136-145); UREA NITROGEN 19 mg/dL (7-18); eGFR NON AFRICAN AMERICAN 87 mL/min (90-120)
[2020-06-03 06:42] LABS: BILIRUBIN 2+ (NEGATIVE); KETONE NEGATIVE (NEGATIVE); NITRITE NEGATIVE (NEGATIVE); UROBILINOGEN 4 mg/dL (< 2)
[2020-06-03 08:00] VITALS: BP 120/66
[2020-06-03 11:00] VITALS: BP 140/65
--- NOTE | 2020-06-03 13:15 | NUR ---
REPORT RECD FROM JAY ARRIAZA. PT RESPIRATIONS ARE EVEN AND UNLABORED. PT AROUSABLE WITH VERBAL STIMULATION. INCENTIVE SPIROMETER ENCOURAGED AND AT BEDSIDE. FALL PRECAUTIONS IN PLACE. 6L HFNC. BED IS IN THE LOWEST POSITION. CALL LIGHT AND BEDSIDE TABLE ARE WITHIN REACH. SIDE RAILS X 2. PT DENIES FURTHER NEEDS. WILL CONT TO MONITOR.
--- NOTE | 2020-06-03 13:22 | NUR ---
Nutrition Follow-up: Per IR plan will be to drain 1L from abd PleurX every other day. Had 1L drained today. Diet: Low Sodium PO intake: ~25% average x last 5 meals. PO intake remains poor. Last BM: 06/03/20 Wt: 151# (05/23/20), no new weight Meds noted: NS@30, SSI Labs noted: Glu 138(H); POC Glu 114(H), 141(H); alb 2.1(L) Recommend: -Continue current diet (or per MD). Consider liberalizing diet to regular to promote better PO intake -Will add Ensure TID -RD will follow-up 06/07/20
--- NOTE | 2020-06-03 14:33 | NUR ---
OT NOTE: (AM) NURSING CLEARED PT FOR THERAPY PARTICIPATION. PT COMPLETED BED MOBILITY WITH MIN A. PT COMPLETED ADL MOB WITH MIN A USING RW TO TOILET. PT COMPLETED TOILETING WITH SBA. (PM) PT COMPLETED ADL MOB WITH RW WITH MIN-MOD A. PT REQUIRED MIN-MOD FOR SIT TO SUPINE. [phone] MILLA DOMÍNGUEZ COTA
[2020-06-03 15:00] VITALS: BP 121/66
--- NOTE | 2020-06-03 15:39 | NUR ---
PT RESTING IN BED WITH EYES CLOSED. PT IS AROUSABLE WITH VERBAL STIMULATION. PT ASKED IF URGE TO VOID IS PRESENT PT SAYS YES. PT ASSISTED ONTO BEDPAN WITH MINIMAL ASSIST. BED IS IN THE LOWEST POSITION. CALL LIGHT AND BEDSIDE TABLE ARE WITHIN REACH. SIDE RAILS X 2. WILL CONT TO MONITOR.
--- NOTE | 2020-06-03 15:45 | NUR ---
PT SUCCESFUL WITH VOIDING IN BED SAAB. MODERATE AMOUNT OF DARK YELLOW URINE NOTED. MINIMAL ASSISTANCE NEEDED TO REMOVE PT FROM BEDPAN. FALL PRECAUTIONS IN PLACE. BED IS IN THE LOWEST POSITION. CALL LIGHT AND BEDSIDE TABLE ARE WITHIN REACH. SIDE RAILS X 2. PT DENIES FURTHER NEEDS. WILL CONT TO MONITOR.
[2020-06-03 20:00] VITALS: BP 106/65
--- NOTE | 2020-06-04 00:15 | NUR ---
I have reviewed this patient and I concur with the Shift Assessment completed by the Licensed Practical Nurse today this shift.
[2020-06-04 04:00] VITALS: BP 121/63
--- NOTE | 2020-06-04 04:01 | NUR ---
DECREASED FIO2 FROM 40% TO 35%
[2020-06-04 06:40] LABS: BASOPHILS 0.2 % (0-2); EOSINOPHILS 0.6 % (0-7); HEMATOCRIT 37.5 % (36.0-48.0); HEMOGLOBIN 11.1 g/dL (12-16); IMMATURE GRANULOCYTES 0.4 % (0-5); LYMPHOCYTE ABS# 0.65 10x3/uL (1.18-3.74); LYMPHOCYTES 12.9 % (15-50); MCH 30.2 pg (26.0-34.0); MCHC 29.6 g/dL (31.0-37.0); MCV 102.2 fL (80.0-100.0); MEAN PLATELET VOLUME 10.6 fL (7.4-10.4); MONOCYTES 11.3 % (2-11); NEUTROPHIL ABS# 3.76 10x3/uL (1.56-6.13); NEUTROPHILS 74.6 % (40-80); PLATELET COUNT 100 10x3/uL (130-400); RBC 3.67 10x6/uL (4.00-5.40)
[2020-06-04 07:22] LABS: ALKALINE PHOSPHATASE 184 U/L (30-120); ALT (SGPT) 27 U/L (10-68); BILIRUBIN - TOTAL 2.26 mg/dL (0.2-1.3); CALC OSMOLALITY 283 mosm/kg (275-300); CARBON DIOXIDE 34.8 mmol/L (21.0-32.0); CHLORIDE - SERUM 103 mmol/L (98-107); CREATININE - SERUM 0.7 mg/dL (0.6-1.3); GLUCOSE 82 mg/dL (74-106); POTASSIUM - SERUM 3.8 mmol/L (3.5-5.1); PROTEIN - SERUM 5.9 g/dL (6.4-8.2); SODIUM 142 mmol/L (136-145); UREA NITROGEN 19 mg/dL (7-18); eGFR NON AFRICAN AMERICAN 87 mL/min (90-120)
--- NOTE | 2020-06-04 07:31 | NUR ---
RESTING,WITHOUT SIGNS OF DISTRESS.DOOR OPEN TO MONITOR
--- NOTE | 2020-06-04 08:04 | NUR ---
MORNING ROUNDS MADE. PT IN BED, SUPINE WITH EYES CLOSED, BREATHING IS EVEN AND NON LABORED. NO S/S OF DISTRESS NOTED AT THIS TIME. PT IS LETHARGIC, HARD TO AROUSE. TECH IN ROOM OBTAINING VITAL SIGNS. BED IN LOWEST POSITION, BED RAILS X2, CALL LIGHT WITHIN REACH. WILL CONTINUE POC.
[2020-06-04 08:16] VITALS: BP 118/64
--- NOTE | 2020-06-04 09:18 | NUR ---
ADMINISTERED LOVENOX INJECTION. LETHARGIC, AROUSES TO VOICE AND STIMULI BUT IS UNABLE TO STAY AWAKE. NO ABLE TO PASS PILL AT THIS TIME. LEFT PT IN BED, BED RAILS X2, CALL LIGHT WITHIN REACH. WILL CONTINUE POC.
--- NOTE | 2020-06-04 11:54 | NUR ---
PHYSICAL THERAPY WAS ABLE TO GET PATIENT UP TO BEDSIDE CHAIR. PT IS NOW AWAKE AND ALERT, ABLE TO STAY AWAKE AND HAVE A CONVERSATION. FAMILY IS AT BEDSIDE. DENIES ANY NEEDS. FEET ARE UP, BED SIDE TABLE OVER PT LAP WITH CALL LIGHT WITHIN REACH. WILL CONTINUE POC.
--- NOTE | 2020-06-04 11:55 | NUR ---
NO INSULIN PER SLIDING SCALE FOR SUGAR OF 117.
[2020-06-04 12:01] VITALS: BP 123/67
--- NOTE | 2020-06-04 13:35 | NUR ---
ASSUMED PT CARE. NO SIGNS OF DISTRESS OR NEEDS. BED LOW, CL IN REACH. GWYN CONTINUE PLAN OF CARE.
[2020-06-04 16:33] VITALS: BP 122/68
[2020-06-04 20:21] VITALS: BP 127/67
--- NOTE | 2020-06-04 23:12 | NUR ---
I have reviewed this patient and I concur with the Shift Assessment completed by the Licensed Practical Nurse today this shift.
[2020-06-05 04:30] VITALS: BP 129/64
[2020-06-05 07:38] LABS: BASOPHILS 0.4 % (0-2); EOSINOPHILS 0.7 % (0-7); HEMATOCRIT 37.7 % (36.0-48.0); HEMOGLOBIN 11.5 g/dL (12-16); IMMATURE GRANULOCYTES 0.2 % (0-5); LYMPHOCYTES 13.1 % (15-50); MCH 30.8 pg (26.0-34.0); MCHC 30.5 g/dL (31.0-37.0); MCV 101.1 fL (80.0-100.0); MEAN PLATELET VOLUME 9.8 fL (7.4-10.4); MONOCYTES 11.4 % (2-11); NEUTROPHILS 74.2 % (40-80); PLATELET COUNT 102 10x3/uL (130-400); RBC 3.73 10x6/uL (4.00-5.40); RDW 16.8 % (11.5-14.5); WBC 4.6 10x3/uL (4.8-10.8)
[2020-06-05 08:10] LABS: ALKALINE PHOSPHATASE 233 U/L (30-120); ALT (SGPT) 35 U/L (10-68); BILIRUBIN - TOTAL 1.51 mg/dL (0.2-1.3); CALC OSMOLALITY 282 mosm/kg (275-300); CALCIUM 8.8 mg/dL (8.5-10.1); CARBON DIOXIDE 35.6 mmol/L (21.0-32.0); CHLORIDE - SERUM 102 mmol/L (98-107); CREATININE - SERUM 0.6 mg/dL (0.6-1.3); GLUCOSE 126 mg/dL (74-106); POTASSIUM - SERUM 4.1 mmol/L (3.5-5.1); PROTEIN - SERUM 5.7 g/dL (6.4-8.2); SODIUM 140 mmol/L (136-145); UREA NITROGEN 18 mg/dL (7-18); eGFR NON AFRICAN AMERICAN > 90 mL/min (90-120)
--- NOTE | 2020-06-05 08:10 | NUR ---
PATIENT IS WITHOUT DISTRESS.MONITOR FOR NEEDS.
[2020-06-05 09:34] VITALS: BP 125/77
--- NOTE | 2020-06-05 10:49 | NUR ---
ADMINISTERED MEDICATION, NO DIFFICULTIES. FULL LINEN CHANGE AT THIS TIME. SITUATED IN BED. AIDE AT BEDSIDE HELPING PATIENT EAT. DENIES ANY NEEDS AT THIS TIME. BED IN LOWEST POSITION, BED RAILS X2, CALL LIGHT WITHIN REACH. WILL CONTINUE POC.
--- NOTE | 2020-06-05 11:57 | NUR ---
NO INSULIN PER SLIDING SCALE FOR SUGAR OF 152. PT IS A BRITTLE DIABETIC. FAMILY AT [facility]. DENIES ANY NEEDS AT THIS TIME. WILL CONTINUE POC.
--- NOTE | 2020-06-05 13:18 | NUR ---
UPRIGHT IN BED. SWITCHED TO 6L HI-DEANDRA O2 IN ORDER TO EAT LUNCH. SET UP TRAY. DENIES ANY NEEDS AT THIS TIME. WILL CONTINUE POC.
[2020-06-05 13:37] VITALS: BP 112/65
--- NOTE | 2020-06-05 16:58 | NUR ---
RESTING COMFORTABLY. DENIES ANY NEEDS. NO INSULIN DUE TO PT BEING A BRITTLE DIABETIC AND NOT EATING MUCH. WILL CONTINUE POC
[2020-06-05 17:41] VITALS: BP 121/69
--- NOTE | 2020-06-05 19:45 | NUR ---
RECEIVED BEDSIDE REPORT. PT LAYING IN BED O TO SELF AND PLACE. 02 SAT 98% ON 6L VIA HFNC. PIV TO LEFT FOREARM, PATENT AND INFUSING, NO REDNESS OR SWELLING. INCISION TO RIGHT ABD, PLU CATH INTACT, DRSG C/D/I. EDUCATED PT ON CL AND NEEDS, NEEDS FURTHER INSTRUCTION. BED LOW, ALARM ON, CL IN REACH. WCTM.
[2020-06-05 20:00] VITALS: BP 102/58
[2020-06-06] VITALS: BP 103/60
[2020-06-06 04:00] VITALS: BP 108/57
[2020-06-06 05:51] LABS: BASOPHILS 0.4 % (0-2); EOSINOPHILS 1.3 % (0-7); HEMATOCRIT 38.5 % (36.0-48.0); HEMOGLOBIN 11.4 g/dL (12-16); IMMATURE GRANULOCYTES 0.4 % (0-5); LYMPHOCYTE ABS# 0.82 10x3/uL (1.18-3.74); LYMPHOCYTES 18.2 % (15-50); MCH 30.2 pg (26.0-34.0); MCHC 29.6 g/dL (31.0-37.0); MCV 101.9 fL (80.0-100.0); MEAN PLATELET VOLUME 10.3 fL (7.4-10.4); MONOCYTES 12.2 % (2-11); NEUTROPHIL ABS# 3.03 10x3/uL (1.56-6.13); NEUTROPHILS 67.5 % (40-80); PLATELET COUNT 100 10x3/uL (130-400); RBC 3.78 10x6/uL (4.00-5.40); RDW 16.9 % (11.5-14.5); WBC 4.5 10x3/uL (4.8-10.8)
[2020-06-06 06:30] LABS: ALKALINE PHOSPHATASE 238 U/L (30-120); ALT (SGPT) 38 U/L (10-68); BILIRUBIN - TOTAL 1.46 mg/dL (0.2-1.3); CALC OSMOLALITY 285 mosm/kg (275-300); CARBON DIOXIDE 37.7 mmol/L (21.0-32.0); CHLORIDE - SERUM 103 mmol/L (98-107); CREATININE - SERUM 0.6 mg/dL (0.6-1.3); GLUCOSE 128 mg/dL (74-106); POTASSIUM - SERUM 3.9 mmol/L (3.5-5.1); PROTEIN - SERUM 5.8 g/dL (6.4-8.2); SODIUM 141 mmol/L (136-145); UREA NITROGEN 21 mg/dL (7-18); eGFR NON AFRICAN AMERICAN > 90 mL/min (90-120)
[2020-06-06 08:20] VITALS: BP 130/70
--- NOTE | 2020-06-06 08:30 | NUR ---
1050 ML DRAINED FROM ABDOMINAL PLEUR-X. PT TOLERATED PROCEDURE WELL. NURSING INSTRUCTION ENTERED TO DRAIN ONE BOTTLE FROM PLEUR-X EVERY OTHER DAY AND CHANGE DRESSING NEEDED. WILL CONTINUE TO MONITOR.
--- NOTE | 2020-06-06 10:34 | NUR ---
REDNESS NOTED TO TOP OF NOSE. CONSULTED WITH RT TO FIND APPROPRIATE DRESSING. MEPILEX APPLIED TO TOP OF NOSE, RT TO EVALUATE SEAL OF BIPAP WHEN MASK REAPPLIED.
[2020-06-06 13:21] VITALS: BP 107/47
--- NOTE | 2020-06-06 15:37 | NUR ---
OT NOTE:(AM) NURSING CLEARED PT FOR THERAPY. PT COMPLETED BED MOBILITY TASKS WITH MOD A. PT COMPLETED LB HYGIENE WITH TOTAL A. PT COMPLETED FACE HYGIENE WITH MOD A. PT IS LETHARGIC. NURSING AWARE. (PM) PT COMPLETED BED MOB AND POSITIONING WITH MOD A. [phone] THANK YOU,RICHIE TATE
[2020-06-06 17:14] VITALS: BP 129/54
[2020-06-06 20:00] VITALS: BP 110/54
[2020-06-07] VITALS: BP 108/55
[2020-06-07 04:00] VITALS: BP 129/60
--- NOTE | 2020-06-07 05:00 | NUR ---
I have reviewed this patient and I concur with the Shift Assessment completed by the Licensed Practical Nurse today this shift.
[2020-06-07 07:32] LABS: BASOPHILS 0.3 % (0-2); EOSINOPHILS 0.3 % (0-7); HEMATOCRIT 39.7 % (36.0-48.0); HEMOGLOBIN 11.7 g/dL (12-16); IMMATURE GRANULOCYTES 0.3 % (0-5); LYMPHOCYTE ABS# 0.62 10x3/uL (1.18-3.74); LYMPHOCYTES 8.2 % (15-50); MCH 30.5 pg (26.0-34.0); MCHC 29.5 g/dL (31.0-37.0); MCV 103.4 fL (80.0-100.0); MEAN PLATELET VOLUME 10.6 fL (7.4-10.4); NEUTROPHIL ABS# 6.16 10x3/uL (1.56-6.13); NEUTROPHILS 81.9 % (40-80); PLATELET COUNT 106 10x3/uL (130-400); RBC 3.84 10x6/uL (4.00-5.40)
[2020-06-07 07:45] LABS: ALBUMIN 2.1 g/dL (3.4-5.0); ALKALINE PHOSPHATASE 250 U/L (30-120); ALT (SGPT) 42 U/L (10-68); BILIRUBIN - TOTAL 1.49 mg/dL (0.2-1.3); CALC OSMOLALITY 284 mosm/kg (275-300); CALCIUM 9.1 mg/dL (8.5-10.1); CARBON DIOXIDE 37.4 mmol/L (21.0-32.0); CHLORIDE - SERUM 101 mmol/L (98-107); CREATININE - SERUM 0.7 mg/dL (0.6-1.3); GLUCOSE 156 mg/dL (74-106); POTASSIUM - SERUM 4.3 mmol/L (3.5-5.1); PROTEIN - SERUM 5.9 g/dL (6.4-8.2); SODIUM 140 mmol/L (136-145); UREA NITROGEN 21 mg/dL (7-18); eGFR NON AFRICAN AMERICAN 87 mL/min (90-120)
[2020-06-07 07:49] LABS: WBC 7.5 10x3/uL (4.8-10.8)
[2020-06-07 09:37] VITALS: BP 93/43
--- NOTE | 2020-06-07 09:38 | MORECARE ---
CASE MANAGEMENT DISCHARGE SUMMARY PATIENT: MARK NDIAYE UNIT: [id number] ADM DATE: 05/19/20 AGE: 74 : 46 SEX: F ROOM/BED: D.2213 AUTHOR: GABY,DOC PHYSICIAN: REFERRING PHYSICIAN: DANETTE CHAVEZ MD DATE OF SERVICE: 06/07/20 Case Management Discharge Planning Summary COMMENTS ENTERED DATE: 06/07/20 9:29 CT COMMENT TYPE: Discharge Planning REVIEWER: Marion Gamez SPOKE WITH SANDEEP WITH [facility] AND SHE IS BRINGING PATIENT'S TRILIOGY UP HERE FOR THE PATIENT TO USE AND POTENTIALLY DC TOMORROW TO [facility] CALLED ONEIL AT [facility] TO LET HER KNOW CM TO FOLLOW AND ASSIST NEEDED ENTERED DATE: 06/02/20 9:22 CT COMMENT TYPE: Discharge Planning REVIEWER: Marion Gamez PATIENTS AUTH HAS AT [facility] AND THEY WILL HAVE TO GET ANOTHER AUTH WHEN STABLE I HAVE CONTACTED SHERYL AT [facility] TO START THE PROCESS TO GET HER APPROVED FOR A TRILOGY ENTERED DATE: 05/31/20 7:30 CT COMMENT TYPE: Discharge Planning REVIEWER: Marion Gamez LATE ENTRY 05/30 1400 ONEIL FROM [facility] CALLED AND STATED THAT SHE HAS RECEIVED AUTH AND CAN BE ACCEPTED WHEN SHE IS STABLE ENTERED DATE: 05/27/20 16:05 CT COMMENT TYPE: Discharge Planning REVIEWER: Marion RIGGS WITH [facility] CALLED ANDSTATED THAT ARETHA ( THE DON ) WILL BE WORKING THIS WEEKEND AND IF SHE GETS THE AUTH SHE WILL REACH OUT TO US ENTERED DATE: 05/27/20 15:29 CT COMMENT TYPE: Discharge Planning REVIEWER: Marion Gamez RECEIVED A CALL FROM [employer] AT [facility] STATING THAT THEY HAVE APPROVAL, BUT ARE PENDING THE DATES SHE IS APRROVED SHE WILL REACH OUT TO US WHEN SHE RECEIVES THAT INFORMATION I ALSO REACHED OUT TO HER TO GET AN UPDATE AND LEFT A MESSAGE FOR HER TO CALL ME ENTERED DATE: 05/26/20 13:39 CT COMMENT TYPE: Discharge Planning REVIEWER: Marion Gamez PATIENT WAS DENIED INPATIENT REHAB, I SPOKE WITH THE PATIENT TO SEE IF SHE WOULD LIKE TO GO TO A SKILLED FACILITY AND SHE WOULD, REFERRAL TO BE SENT TO [facility] ENTERED DATE: 05/24/20 10:41 CT COMMENT TYPE: Discharge Planning REVIEWER: Marion Gamez CM met with patient & her sisters to complete initial dc planning assessment. CM educated patient on the CM role and verbal consent given by patient to complete assessment. Patient lives at home where she had been independent. Per one sister she was getting dizzy at home and she had just bought her a walker before she fell. She stated that her son had been helping take her to get her medications and md appointments. Dr Pringle is her PCP. At discharge patient would like to go to inpatient rehab as long as she has a private room and feels this is a safe discharge. CM discussed availability of home health, rehab services, and medical equipment. She uses home O2 and portable. she gets her O2 DME from [facility]. PHILLIP has been signed for Inpatient rehab. Patient denied known discharge needs at this time. CM will continue to follow and will assist as needed with dc plans/needs. DCP REVIEW SUMMARY ANTICIPATED D/C DATE: EXPECTED LOS : CASE STATUS: DCP Initiated INITIAL REVIEW: 05/19/2020 INITIAL REVIEWER: Marion Gamez FINAL DISCHARGE DISPOSITION: : FINAL REVIEWER: FINAL REVIEW DATE: DCP Focus Questions & Answers DCP Screen QUESTION: ANSWER High Risk Factors: : Hosp related to CHF, COPD, DM, End Stage Ds, CVA, CA DCP Evaluation QUESTION: ANSWER Patient gives permission to discuss discharge plans with: (name, relationship and number) : ALL SISTERS AND SON Patient's ability to cope with chronic illness : d. No chronic illness Patient's current cognitive status: : Intermittently confused / memory changes Family / Caregiver's ability to cope with chronic illness: : a. Adequate (ability to meet patient's medical needs, ensures patient attends medical appts.) Patient and/or caregiver agree upon recommended discharge plan? : Yes Physical Status: : Mobility impaired Family / Caregiver's ability to cope with chronic illness: : b. Minimal (occasionally not dependable to meet pt's. needs, can meet pt's. basic ADL's) Functional screen assessment: : Unable to manage ADLs without immediate ongoing assistance Functional screen assessment: : New onset in difficulty in gait, balance, or transfer difficulties Does the patient have the ability to pay for or attain post discharge needs / services? : Yes Alternate discharge plan (if recommended plan not agreed upon by patient and/or caregiver): : 1)INPATIENT REHAB WOULD LIKE A PRIVATE ROOM 2) SKILLED Partial Dependence, assistance required for: : Bathing Living Arrangements: : Home Alone with Support Is there a likelihood that the patient will require additional services to return to the preadmission environment? : Yes Baseline cognitive status: : *Oriented to person, place, situation, time and present Living arrangements comments: : LIVES ALONE HAS GOOD SUPPORT SYSTEM Patient with capacity for self-care or can be cared for in same environment as prior to hospitalization? : No Results of this evaluation have been discussed with: : Family Results of this evaluation have been discussed with: : Patient Comments: : DR PRINGLE IS PCP [facility]- FOR HOME O2 Physical environment modification needed / anticipated for discharge: : Yes Medication Management: : Patient states can afford medications Pharmacy name(s): : [facility] IN [place] Planned post hospital services available for patient? : Yes Does Patient have transportation to get home and to follow-up medical appointments when discharged from the hospital? : Yes Comments: : HER SON HELPS Would patient like to participate in any Care Coordination programs (if applicable): : Not applicable Does the patient have electricity at home? : Yes Does the patient have running water in their house? : Yes Equipment in use: : Home Oxygen with Nasal Cannula Equipment in use: : Walker - Rollator Other Equipment comments: : HAS A WALKER, BUT WAS NOT USING IT Mental health screen: : No mental health history Psychosocial status: : Adult with physical limitations DCP Re-evaluation QUESTION: ANSWER Would patient like to participate in any Care Coordination programs (if applicable): : Not applicable PATIENT: MARK NDIAYE ENCOUNTER: [id number] MEDICAL RECORD#: [id number] ADMISSION DATE: 05/19/2020 DISCHARGE DATE: ATTENDING MD: DANETTE ALAN : AGE: 74 MARITAL STATUS: W DC PLAN ID: [id number] FACILITY: [facility] PRINTED ON: 06/07/20 9:38 CT All edits/amendments must be made on the electronic document DICTATION DATE: 06/07/20937 BROTH MIXER: MARITO 06/07/20937 RPT#: [id number] DC DATE: STATUS: ADM IN [facility] [address] [place] [address] END OF REPORT
[2020-06-07 12:04] VITALS: BP 108/51
--- NOTE | 2020-06-07 15:36 | NUR ---
OT NOTE: PT COMPLETED SUPINE TO SIT WITH MAX A. PT COMPLETED EOB SITTING WITH MOD A. PT REQUIRED MAX A FOR SIT TO SUPINE. PT REQUIRED TOTAL A FOR POSITIONING IN BED. PT COMPLETED FACE AND HAND HYGIENE WITH MIN A. [id number] THANK YOU,RICHIE TATE
--- NOTE | 2020-06-07 16:19 | NUR ---
Nutrition Re-Assessment: Diet: Low Sodium + Ensure TID PO intake: 0% x 2 meals today. She states that her appetite is "not too good." States that she is drinking some of the Ensure. Denies needs from dietary at this time. Last BM: 06/03/20 Wt: 151# (05/23/20), no new weight Meds noted: SSI Labs noted: Glu 156(H), POC Glu 140(H), 165(H), alb 2.1(L) Estimated nutrition needs: 2649-7065 yola (25-30 Act), 70-91gms protein (1-1.3), 1715-2040mL fluid (or per MD) Nutrition diagnosis: Inadequate energy intake r/t advanced age with lung cancer, mets AEB PO intake <50% avg meals. Nutrition goals: -PO intake increase to >65% meals -Dry weight stable -Blood glucose to trend WNL Recommendations/Interventions: -New weight -Recommend MD consider liberalize diet to regular to encourage PO intake -Will continue to honor food preferences within diet restrictions -Continue Ensure TID -RD will follow-up 06/10/20.
[2020-06-07 16:51] VITALS: BP 92/48
[2020-06-07 20:40] VITALS: BP 98/53
[2020-06-08 01:49] VITALS: BP 110/60
--- NOTE | 2020-06-08 06:10 | NUR ---
I have reviewed this patient and I concur with the Shift Assessment completed by the Licensed Practical Nurse today this shift.
[2020-06-08 06:30] VITALS: BP 102/58
[2020-06-08 06:51] LABS: BASOPHILS 0.3 % (0-2); EOSINOPHILS 1.2 % (0-7); HEMATOCRIT 37.2 % (36.0-48.0); HEMOGLOBIN 11.3 g/dL (12-16); IMMATURE GRANULOCYTES 0.3 % (0-5); LYMPHOCYTE ABS# 0.88 10x3/uL (1.18-3.74); LYMPHOCYTES 15.2 % (15-50); MCH 30.7 pg (26.0-34.0); MCHC 30.4 g/dL (31.0-37.0); MEAN PLATELET VOLUME 10.8 fL (7.4-10.4); MONOCYTES 13.6 % (2-11); NEUTROPHIL ABS# 4.02 10x3/uL (1.56-6.13); NEUTROPHILS 69.4 % (40-80); PLATELET COUNT 113 10x3/uL (130-400); RBC 3.68 10x6/uL (4.00-5.40); RDW 17.3 % (11.5-14.5); WBC 5.8 10x3/uL (4.8-10.8)
[2020-06-08 07:01] LABS: ALKALINE PHOSPHATASE 242 U/L (30-120); ALT (SGPT) 40 U/L (10-68); BILIRUBIN - TOTAL 1.77 mg/dL (0.2-1.3); CALC OSMOLALITY 285 mosm/kg (275-300); CARBON DIOXIDE 37.5 mmol/L (21.0-32.0); CHLORIDE - SERUM 102 mmol/L (98-107); CREATININE - SERUM 0.6 mg/dL (0.6-1.3); GLUCOSE 109 mg/dL (74-106); POTASSIUM - SERUM 4.2 mmol/L (3.5-5.1); PROTEIN - SERUM 5.8 g/dL (6.4-8.2); SODIUM 141 mmol/L (136-145); UREA NITROGEN 24 mg/dL (7-18); eGFR NON AFRICAN AMERICAN > 90 mL/min (90-120)
[2020-06-08 07:09] LABS: MCV 101.1 fL (80.0-100.0)
--- NOTE | 2020-06-08 07:29 | NUR ---
CPAP IN USE. PATIENT IS WITHOUT DISTRESS.CALL LIGHT IN REACH
--- NOTE | 2020-06-08 07:30 | NUR ---
REC'D IN BED WITH EYES CLOSED EASILY TO AROUSED WHEN NAME IS CALLED. RESP EVEN AND UNLABORED WITH NO DISTRESS NOTED. PT HAS TRILOGY ON AT THIS TIME AND IS VERY DROWSY ACTING. ASSESSMENT COMPLETED. C/L IN REACH AT BEDSIDE.
[2020-06-08 09:23] VITALS: BP 102/54
--- NOTE | 2020-06-08 12:52 | MORECARE ---
CASE MANAGEMENT DISCHARGE SUMMARY PATIENT: MARK NDIAYE UNIT: [id number] ADM DATE: 05/19/20 AGE: 74 : 47 SEX: F ROOM/BED: D.2213 AUTHOR: GABY,DOC PHYSICIAN: REFERRING PHYSICIAN: DANETTE CHAVEZ MD DATE OF SERVICE: 06/08/20 Case Management Discharge Planning Summary COMMENTS ENTERED DATE: 06/08/20 12:50 CT COMMENT TYPE: Discharge Planning REVIEWER: Marion Gamez ATTEMPTED TO REACH [facility] FOR THE SECOND TIME TODAY AND I HAVE NOT GOT AN ANSWER I HAVE LEFT A MESSAGE FOR HER TO CALL ME BACK ENTERED DATE: 06/07/20 9:29 CT COMMENT TYPE: Discharge Planning REVIEWER: Marion Gamez SPOKE WITH SANDEEP WITH [facility] AND SHE IS BRINGING PATIENT'S TRILIOGY UP HERE FOR THE PATIENT TO USE AND POTENTIALLY DC TOMORROW TO [facility] CALLED ONEIL AT [facility] TO LET HER KNOW CM TO FOLLOW AND ASSIST NEEDED ENTERED DATE: 06/02/20 9:22 CT COMMENT TYPE: Discharge Planning REVIEWER: Marion Gamez PATIENTS AUTH HAS AT [facility] AND THEY WILL HAVE TO GET ANOTHER AUTH WHEN STABLE I HAVE CONTACTED SHERYL AT [facility] TO START THE PROCESS TO GET HER APPROVED FOR A TRILOGY ENTERED DATE: 05/31/20 7:30 CT COMMENT TYPE: Discharge Planning REVIEWER: Marion Gamez LATE ENTRY 05/30 1400 ONEIL FROM [facility] CALLED AND STATED THAT SHE HAS RECEIVED AUTH AND CAN BE ACCEPTED WHEN SHE IS STABLE ENTERED DATE: 05/27/20 16:05 CT COMMENT TYPE: Discharge Planning REVIEWER: Marion RIGGS WITH [facility] CALLED ANDSTATED THAT ARETHA ( THE DON ) WILL BE WORKING THIS WEEKEND AND IF SHE GETS THE AUTH SHE WILL REACH OUT TO US ENTERED DATE: 05/27/20 15:29 CT COMMENT TYPE: Discharge Planning REVIEWER: Marion Vera RECEIVED A CALL FROM ONEIL AT [facility] STATING THAT THEY HAVE APPROVAL, BUT ARE PENDING THE DATES SHE IS APRROVED SHE WILL REACH OUT TO US WHEN SHE RECEIVES THAT INFORMATION I ALSO REACHED OUT TO HER TO GET AN UPDATE AND LEFT A MESSAGE FOR HER TO CALL ME ENTERED DATE: 05/26/20 13:39 CT COMMENT TYPE: Discharge Planning REVIEWER: Marion Gamez PATIENT WAS DENIED INPATIENT REHAB, I SPOKE WITH THE PATIENT TO SEE IF SHE WOULD LIKE TO GO TO A SKILLED FACILITY AND SHE WOULD, REFERRAL TO BE SENT TO [facility] ENTERED DATE: 05/24/20 10:41 CT COMMENT TYPE: Discharge Planning REVIEWER: Marion Gamez CM met with patient & her sisters to complete initial dc planning assessment. CM educated patient on the CM role and verbal consent given by patient to complete assessment. Patient lives at home where she had been independent. Per one sister she was getting dizzy at home and she had just bought her a walker before she fell. She stated that her son had been helping take her to get her medications and md appointments. Dr Pringle is her PCP. At discharge patient would like to go to inpatient rehab as long as she has a private room and feels this is a safe discharge. CM discussed availability of home health, rehab services, and medical equipment. She uses home O2 and portable. she gets her O2 DME from [facility]. PHILLIP has been signed for Inpatient rehab. Patient denied known discharge needs at this time. CM will continue to follow and will assist as needed with dc plans/needs. DCP REVIEW SUMMARY ANTICIPATED D/C DATE: EXPECTED LOS : CASE STATUS: DCP Initiated INITIAL REVIEW: 05/19/2020 INITIAL REVIEWER: Marion Gamez FINAL DISCHARGE DISPOSITION: : FINAL REVIEWER: FINAL REVIEW DATE: DCP Focus Questions & Answers DCP Screen QUESTION: ANSWER High Risk Factors: : Hosp related to CHF, COPD, DM, End Stage Ds, CVA, CA DCP Evaluation QUESTION: ANSWER Patient and/or caregiver agree upon recommended discharge plan? : Yes Family / Caregiver's ability to cope with chronic illness: : a. Adequate (ability to meet patient's medical needs, ensures patient attends medical appts.) Patient's current cognitive status: : Intermittently confused / memory changes Patient's ability to cope with chronic illness : d. No chronic illness Patient gives permission to discuss discharge plans with: (name, relationship and number) : ALL SISTERS AND SON Alternate discharge plan (if recommended plan not agreed upon by patient and/or caregiver): : 1)INPATIENT REHAB WOULD LIKE A PRIVATE ROOM 2) SKILLED Does the patient have the ability to pay for or attain post discharge needs / services? : Yes Functional screen assessment: : New onset in difficulty in gait, balance, or transfer difficulties Functional screen assessment: : Unable to manage ADLs without immediate ongoing assistance Family / Caregiver's ability to cope with chronic illness: : b. Minimal (occasionally not dependable to meet pt's. needs, can meet pt's. basic ADL's) Physical Status: : Mobility impaired Is there a likelihood that the patient will require additional services to return to the preadmission environment? : Yes Living Arrangements: : Home Alone with Support Partial Dependence, assistance required for: : Bathing Results of this evaluation have been discussed with: : Patient Results of this evaluation have been discussed with: : Family Patient with capacity for self-care or can be cared for in same environment as prior to hospitalization? : No Living arrangements comments: : LIVES ALONE HAS GOOD SUPPORT SYSTEM Baseline cognitive status: : *Oriented to person, place, situation, time and present Physical environment modification needed / anticipated for discharge: : Yes Comments: : DR PRINGLE IS PCP [facility]- FOR HOME O2 Medication Management: : Patient states can afford medications Planned post hospital services available for patient? : Yes Pharmacy name(s): : [facility] IN [place] Does Patient have transportation to get home and to follow-up medical appointments when discharged from the hospital? : Yes Would patient like to participate in any Care Coordination programs (if applicable): : Not applicable Comments: : HER SON HELPS Does the patient have electricity at home? : Yes Does the patient have running water in their house? : Yes Equipment in use: : Walker - Rollator Equipment in use: : Home Oxygen with Nasal Cannula Other Equipment comments: : HAS A WALKER, BUT WAS NOT USING IT Mental health screen: : No mental health history Psychosocial status: : Adult with physical limitations DCP Re-evaluation QUESTION: ANSWER Would patient like to participate in any Care Coordination programs (if applicable): : Not applicable PATIENT: MARK NDIAYE ENCOUNTER: [id number] MEDICAL RECORD#: [id number] ADMISSION DATE: 05/19/2020 DISCHARGE DATE: ATTENDING MD: DANETTE ALAN : AGE: 74 MARITAL STATUS: W DC PLAN ID: [id number] FACILITY: [facility] PRINTED ON: 06/08/20 12:51 CT All edits/amendments must be made on the electronic document DICTATION DATE: 06/08/20 125 PRESIDENT AND CHIEF EXECUTIVE OFFICER: MARITO 06/08/20 1251 RPT#: [id number] DC DATE: STATUS: ADM IN [facility] [address] [place] [address] END OF REPORT
[2020-06-08 13:30] VITALS: BP 107/55
--- NOTE | 2020-06-08 14:30 | MORECARE ---
CASE MANAGEMENT DISCHARGE SUMMARY PATIENT: MARK NDIAYE UNIT: [id number] ADM DATE: 05/19/20 AGE: 74 : 46 SEX: F ROOM/BED: D.2213 AUTHOR: GABY,DOC PHYSICIAN: REFERRING PHYSICIAN: DANETTE CHAVEZ MD DATE OF SERVICE: 06/08/20 Case Management Discharge Planning Summary COMMENTS ENTERED DATE: 06/08/20 14:17 CT COMMENT TYPE: Discharge Planning REVIEWER: Marion Gamez SPOKE WITH TILA AT [facility] AND THEY ARE STILL WAITING ON AUTH SHE WILL CALL US WHEN SHE GETS IT ENTERED DATE: 06/08/20 12:50 CT COMMENT TYPE: Discharge Planning REVIEWER: Marion Gamez ATTEMPTED TO REACH [facility] FOR THE SECOND TIME TODAY AND I HAVE NOT GOT AN ANSWER I HAVE LEFT A MESSAGE FOR HER TO CALL ME BACK ENTERED DATE: 06/07/20 9:29 CT COMMENT TYPE: Discharge Planning REVIEWER: Marion Gamez SPOKE WITH SANDEEP WITH [facility] AND SHE IS BRINGING PATIENT'S TRILIOGY UP HERE FOR THE PATIENT TO USE AND POTENTIALLY DC TOMORROW TO [facility] NURSING CALLED [facility] [place] TO LET HER KNOW CM TO FOLLOW AND ASSIST NEEDED ENTERED DATE: 06/02/20 9:22 CT COMMENT TYPE: Discharge Planning REVIEWER: Marion Gamez PATIENTS AUTH HAS AT [place] AND THEY WILL HAVE TO GET ANOTHER AUTH WHEN STABLE I HAVE CONTACTED SHERYL AT [facility] TO START THE PROCESS TO GET HER APPROVED FOR A TRILOGY ENTERED DATE: 05/31/20 7:30 CT COMMENT TYPE: Discharge Planning REVIEWER: Marion Gamez LATE ENTRY 05/30 Elaine RIGGS FROM [place] [place] CALLED AND STATED THAT SHE HAS RECEIVED AUTH AND CAN BE ACCEPTED WHEN SHE IS STABLE ENTERED DATE: 05/27/20 16:05 CT COMMENT TYPE: Discharge Planning REVIEWER: Marion RIGGS WITH [facility] CALLED ANDSTATED THAT ARETHA ( THE DON ) WILL BE WORKING THIS WEEKEND AND IF SHE GETS THE AUTH SHE WILL REACH OUT TO US ENTERED DATE: 05/27/20 15:29 CT COMMENT TYPE: Discharge Planning REVIEWER: Marion Vera RECEIVED A CALL FROM ONEIL AT [place] STATING THAT THEY HAVE APPROVAL, BUT ARE PENDING THE DATES SHE IS APRROVED SHE WILL REACH OUT TO US WHEN SHE RECEIVES THAT INFORMATION I ALSO REACHED OUT TO HER TO GET AN UPDATE AND LEFT A MESSAGE FOR HER TO CALL ME ENTERED DATE: 05/26/20 13:39 CT COMMENT TYPE: Discharge Planning REVIEWER: Marion Gamez PATIENT WAS DENIED INPATIENT REHAB, I SPOKE WITH THE PATIENT TO SEE IF SHE WOULD LIKE TO GO TO A SKILLED FACILITY AND SHE WOULD, REFERRAL TO BE SENT TO [place] HALFWAY ENTERED DATE: 05/24/20 10:41 CT COMMENT TYPE: Discharge Planning REVIEWER: Marion Gamez CM met with patient & her sisters to complete initial dc planning assessment. CM educated patient on the CM role and verbal consent given by patient to complete assessment. Patient lives at home where she had been independent. Per one sister she was getting dizzy at home and she had just bought her a walker before she fell. She stated that her son had been helping take her to get her medications and md appointments. Dr Pringle is her PCP. At discharge patient would like to go to inpatient rehab as long as she has a private room and feels this is a safe discharge. CM discussed availability of home health, rehab services, and medical equipment. She uses home O2 and portable. she gets her O2 DME from [facility]. PHILLIP has been signed for Inpatient rehab. Patient denied known discharge needs at this time. CM will continue to follow and will assist as needed with dc plans/needs. DCP REVIEW SUMMARY ANTICIPATED D/C DATE: EXPECTED LOS : CASE STATUS: DCP Initiated INITIAL REVIEW: 05/19/2020 INITIAL REVIEWER: Marion Gamez FINAL DISCHARGE DISPOSITION: : FINAL REVIEWER: FINAL REVIEW DATE: DCP Focus Questions & Answers DCP Screen QUESTION: ANSWER High Risk Factors: : Hosp related to CHF, COPD, DM, End Stage Ds, CVA, CA DCP Evaluation QUESTION: ANSWER Patient and/or caregiver agree upon recommended discharge plan? : Yes Family / Caregiver's ability to cope with chronic illness: : a. Adequate (ability to meet patient's medical needs, ensures patient attends medical appts.) Patient's current cognitive status: : Intermittently confused / memory changes Patient's ability to cope with chronic illness : d. No chronic illness Patient gives permission to discuss discharge plans with: (name, relationship and number) : ALL SISTERS AND SON Alternate discharge plan (if recommended plan not agreed upon by patient and/or caregiver): : 1)INPATIENT REHAB WOULD LIKE A PRIVATE ROOM 2) SKILLED Does the patient have the ability to pay for or attain post discharge needs / services? : Yes Functional screen assessment: : New onset in difficulty in gait, balance, or transfer difficulties Functional screen assessment: : Unable to manage ADLs without immediate ongoing assistance Family / Caregiver's ability to cope with chronic illness: : b. Minimal (occasionally not dependable to meet pt's. needs, can meet pt's. basic ADL's) Physical Status: : Mobility impaired Is there a likelihood that the patient will require additional services to return to the preadmission environment? : Yes Living Arrangements: : Home Alone with Support Partial Dependence, assistance required for: : Bathing Results of this evaluation have been discussed with: : Patient Results of this evaluation have been discussed with: : Family Patient with capacity for self-care or can be cared for in same environment as prior to hospitalization? : No Living arrangements comments: : LIVES ALONE HAS GOOD SUPPORT SYSTEM Baseline cognitive status: : *Oriented to person, place, situation, time and present Physical environment modification needed / anticipated for discharge: : Yes Comments: : DR PRINGLE IS PCP [facility]- FOR HOME O2 Medication Management: : Patient states can afford medications Planned post hospital services available for patient? : Yes Pharmacy name(s): : [facility] IN [place] Does Patient have transportation to get home and to follow-up medical appointments when discharged from the hospital? : Yes Would patient like to participate in any Care Coordination programs (if applicable): : Not applicable Comments: : HER SON HELPS Does the patient have electricity at home? : Yes Does the patient have running water in their house? : Yes Equipment in use: : Walker - Rollator Equipment in use: : Home Oxygen with Nasal Cannula Other Equipment comments: : HAS A WALKER, BUT WAS NOT USING IT Mental health screen: : No mental health history Psychosocial status: : Adult with physical limitations DCP Re-evaluation QUESTION: ANSWER Would patient like to participate in any Care Coordination programs (if applicable): : Not applicable PATIENT: MARK NDIAYE ENCOUNTER: [id number] MEDICAL RECORD#: [id number] ADMISSION DATE: 05/19/2020 DISCHARGE DATE: ATTENDING MD: DANETTE ALAN : AGE: 74 MARITAL STATUS: W DC PLAN ID: [id number] FACILITY: [facility] PRINTED ON: 06/08/20 14:30 CT All edits/amendments must be made on the electronic document DICTATION DATE: 06/08/201429 CUSTOMER ADVISOR: MARITO 06/08/201429 RPT#: [id number] DC DATE: STATUS: ADM IN [facility] [address] [place] [address] END OF REPORT
--- NOTE | 2020-06-08 15:22 | NUR ---
OT NOTE: HOLD PER NURSING. SCOTT STEPHEN, OTR/L
--- NOTE | 2020-06-08 15:33 | NUR ---
OT NOTE: NURSING DIRECTED THEARPY TO HOLD SERVICES TODAY. MILLA DOMÍNGUEZ COTA
--- NOTE | 2020-06-08 15:34 | NUR ---
OT NOTE: PT REQUIRED MAX A FOR BED TO BSC TSF. PT REQUIRED TOTAL A TO DOFF/DANIELLE BRIEF. PT REQUIRED TOTAL A FOR LB HYGIENE. PT COMPLETED UB BATHING TASKS WITH MIN A. PT REQUIRED MAX A FOR LB BATHING TASKS WHILE SEATED. [id number] THANK YOU,RICHIE TATE
[2020-06-08 17:14] VITALS: BP 107/57
[2020-06-08 20:00] VITALS: BP 97/50
[2020-06-09] VITALS: BP 92/51
--- NOTE | 2020-06-09 01:35 | NUR ---
I have reviewed this patient and I concur with the Shift Assessment completed by the Licensed Practical Nurse today this shift.
[2020-06-09 04:00] VITALS: BP 96/48
--- NOTE | 2020-06-09 07:11 | NUR ---
SLEEPING WITHOUT DISTRESS.CPAP IN PROGRESS. DOOR OPEN TO MONITOR
--- NOTE | 2020-06-09 07:15 | NUR ---
REC'D IN BED WITH EYES CLOSED EASILY TO AROUSED WHEN NAME IS CALLED. RESP EVEN AND UNLABORED WITH NO DISTRESS NOTED. INCONT AT TIMES. NO C/O NOTED OR VOICED. ASSESSMENT COMPLETED. C/L IN REACH AT BEDSIDE.
[2020-06-09 07:35] LABS: BASOPHILS 0.4 % (0-2); EOSINOPHILS 1.2 % (0-7); IMMATURE GRANULOCYTES 0.2 % (0-5); LYMPHOCYTE ABS# 0.78 10x3/uL (1.18-3.74); LYMPHOCYTES 15.1 % (15-50); MCH 30.6 pg (26.0-34.0); MCHC 30.6 g/dL (31.0-37.0); MEAN PLATELET VOLUME 10.9 fL (7.4-10.4); MONOCYTES 10.4 % (2-11); NEUTROPHIL ABS# 3.76 10x3/uL (1.56-6.13); NEUTROPHILS 72.7 % (40-80); PLATELET COUNT 120 10x3/uL (130-400); RDW 17.5 % (11.5-14.5); WBC 5.2 10x3/uL (4.8-10.8)
[2020-06-09 07:44] LABS: ALBUMIN 1.8 g/dL (3.4-5.0); ALKALINE PHOSPHATASE 240 U/L (30-120); ALT (SGPT) 42 U/L (10-68); BILIRUBIN - TOTAL 1.76 mg/dL (0.2-1.3); CALC OSMOLALITY 280 mosm/kg (275-300); CALCIUM 8.7 mg/dL (8.5-10.1); CARBON DIOXIDE 36.1 mmol/L (21.0-32.0); CHLORIDE - SERUM 101 mmol/L (98-107); CREATININE - SERUM 0.6 mg/dL (0.6-1.3); GLUCOSE 85 mg/dL (74-106); POTASSIUM - SERUM 4.2 mmol/L (3.5-5.1); PROTEIN - SERUM 5.5 g/dL (6.4-8.2); SODIUM 140 mmol/L (136-145); UREA NITROGEN 21 mg/dL (7-18); eGFR NON AFRICAN AMERICAN > 90 mL/min (90-120)
[2020-06-09 09:10] VITALS: BP 110/58
[2020-06-09] MEDS ORDERED: ROBITUSSIN DM 110 ML PO (11:17)
[2020-06-09 13:37] VITALS: BP 84/44
[2020-06-09] MEDS ORDERED: CHRONULAC30 ML PO (13:59)
--- NOTE | 2020-06-09 15:25 | MORECARE ---
CASE MANAGEMENT DISCHARGE SUMMARY PATIENT: MARK NDIAYE UNIT: [id number] ADM DATE: 05/19/20 AGE: 74 : 46 SEX: F ROOM/BED: D.2213 AUTHOR: GABY,DOC PHYSICIAN: REFERRING PHYSICIAN: DANETTE CHAVEZ MD DATE OF SERVICE: 06/09/20 Case Management Discharge Planning Summary COMMENTS ENTERED DATE: 06/09/20 15:18 CT COMMENT TYPE: Discharge Planning REVIEWER: Marion Vera PATIENT WILL BE DISCHARGING TO [facility] SHE WILL BE GOING VIA EMS TO A SKILLED BED SHE WILL TAKE X2 PLEUREX BOTTLES AND HER TRILIOGY MACHINE FROM [facility] I HAVE SENT THE SETTINGS TO THEM IMM SERVED AND EXPLAINED. I HAVE SPOKE WITH TEREZA THE PATIENTS SON TO LET HIM KNOW CM TO FOLLOW AND ASSIST NEEDED ENTERED DATE: 06/08/20 14:17 CT COMMENT TYPE: Discharge Planning REVIEWER: Marion Gamez SPOKE WITH TILA AT [facility] AND THEY ARE STILL WAITING ON AUTH SHE WILL CALL US WHEN SHE GETS IT ENTERED DATE: 06/08/20 12:50 CT COMMENT TYPE: Discharge Planning REVIEWER: Marion Gamez ATTEMPTED TO REACH [facility] FOR THE SECOND TIME TODAY AND I HAVE NOT GOT AN ANSWER I HAVE LEFT A MESSAGE FOR HER TO CALL ME BACK ENTERED DATE: 06/07/20 9:29 CT COMMENT TYPE: Discharge Planning REVIEWER: Marion Gamez SPOKE WITH SANDEEP WITH [facility] AND SHE IS BRINGING PATIENT'S TRILIOGY UP HERE FOR THE PATIENT TO USE AND POTENTIALLY DC TOMORROW TO [facility] CALLED ONEIL AT [facility] TO LET HER KNOW CM TO FOLLOW AND ASSIST NEEDED ENTERED DATE: 06/02/20 9:22 CT COMMENT TYPE: Discharge Planning REVIEWER: Marion Gamez PATIENTS AUTH HAS AT [facility] AND THEY WILL HAVE TO GET ANOTHER AUTH WHEN STABLE I HAVE CONTACTED SHERYL AT [facility] TO START THE PROCESS TO GET HER APPROVED FOR A TRILOGY ENTERED DATE: 05/31/20 7:30 CT COMMENT TYPE: Discharge Planning REVIEWER: Marion Gamez LATE ENTRY 05/30 1400 ONEIL FROM [facility] CALLED AND STATED THAT SHE HAS RECEIVED AUTH AND CAN BE ACCEPTED WHEN SHE IS STABLE ENTERED DATE: 05/27/20 16:05 CT COMMENT TYPE: Discharge Planning REVIEWER: Marion RIGGS WITH [facility] CALLED ANDSTATED THAT ARETHA ( THE DON ) WILL BE WORKING THIS WEEKEND AND IF SHE GETS THE AUTH SHE WILL REACH OUT TO US ENTERED DATE: 05/27/20 15:29 CT COMMENT TYPE: Discharge Planning REVIEWER: Marion Gamez RECEIVED A CALL FROM ONEIL AT [facility] STATING THAT THEY HAVE APPROVAL, BUT ARE PENDING THE DATES SHE IS APRROVED SHE WILL REACH OUT TO US WHEN SHE RECEIVES THAT INFORMATION I ALSO REACHED OUT TO HER TO GET AN UPDATE AND LEFT A MESSAGE FOR HER TO CALL ME ENTERED DATE: 05/26/20 13:39 CT COMMENT TYPE: Discharge Planning REVIEWER: Marion Gamez PATIENT WAS DENIED INPATIENT REHAB, I SPOKE WITH THE PATIENT TO SEE IF SHE WOULD LIKE TO GO TO A SKILLED FACILITY AND SHE WOULD, REFERRAL TO BE SENT TO [facility] ENTERED DATE: 05/24/20 10:41 CT COMMENT TYPE: Discharge Planning REVIEWER: Marion Gamez CM met with patient & her sisters to complete initial dc planning assessment. CM educated patient on the CM role and verbal consent given by patient to complete assessment. Patient lives at home where she had been independent. Per one sister she was getting dizzy at home and she had just bought her a walker before she fell. She stated that her son had been helping take her to get her medications and md appointments. Dr Pringle is her PCP. At discharge patient would like to go to inpatient rehab as long as she has a private room and feels this is a safe discharge. CM discussed availability of home health, rehab services, and medical equipment. She uses home O2 and portable. she gets her O2 DME from [facility]. PHILLIP has been signed for Inpatient rehab. Patient denied known discharge needs at this time. CM will continue to follow and will assist as needed with dc plans/needs. DCP REVIEW SUMMARY ANTICIPATED D/C DATE: EXPECTED LOS : CASE STATUS: DCP Initiated INITIAL REVIEW: 05/19/2020 INITIAL REVIEWER: Marion Gamez FINAL DISCHARGE DISPOSITION: : FINAL REVIEWER: FINAL REVIEW DATE: DCP Focus Questions & Answers DCP Screen QUESTION: ANSWER High Risk Factors: : Hosp related to CHF, COPD, DM, End Stage Ds, CVA, CA DCP Evaluation QUESTION: ANSWER Patient gives permission to discuss discharge plans with: (name, relationship and number) : ALL SISTERS AND SON Patient's ability to cope with chronic illness : d. No chronic illness Patient's current cognitive status: : Intermittently confused / memory changes Family / Caregiver's ability to cope with chronic illness: : a. Adequate (ability to meet patient's medical needs, ensures patient attends medical appts.) Patient and/or caregiver agree upon recommended discharge plan? : Yes Physical Status: : Mobility impaired Family / Caregiver's ability to cope with chronic illness: : b. Minimal (occasionally not dependable to meet pt's. needs, can meet pt's. basic ADL's) Functional screen assessment: : Unable to manage ADLs without immediate ongoing assistance Functional screen assessment: : New onset in difficulty in gait, balance, or transfer difficulties Does the patient have the ability to pay for or attain post discharge needs / services? : Yes Alternate discharge plan (if recommended plan not agreed upon by patient and/or caregiver): : 1)INPATIENT REHAB WOULD LIKE A PRIVATE ROOM 2) SKILLED Partial Dependence, assistance required for: : Bathing Living Arrangements: : Home Alone with Support Is there a likelihood that the patient will require additional services to return to the preadmission environment? : Yes Baseline cognitive status: : *Oriented to person, place, situation, time and present Living arrangements comments: : LIVES ALONE HAS GOOD SUPPORT SYSTEM Patient with capacity for self-care or can be cared for in same environment as prior to hospitalization? : No Results of this evaluation have been discussed with: : Family Results of this evaluation have been discussed with: : Patient Comments: : DR PRINGLE IS PCP [facility]- FOR HOME O2 Physical environment modification needed / anticipated for discharge: : Yes Medication Management: : Patient states can afford medications Pharmacy name(s): : [facility] [place] Planned post hospital services available for patient? : Yes Does Patient have transportation to get home and to follow-up medical appointments when discharged from the hospital? : Yes Comments: : HER SON HELPS Would patient like to participate in any Care Coordination programs (if applicable): : Not applicable Does the patient have electricity at home? : Yes Does the patient have running water in their house? : Yes Equipment in use: : Home Oxygen with Nasal Cannula Equipment in use: : Walker - Rollator Other Equipment comments: : HAS A WALKER, BUT WAS NOT USING IT Mental health screen: : No mental health history Psychosocial status: : Adult with physical limitations DCP Re-evaluation QUESTION: ANSWER Would patient like to participate in any Care Coordination programs (if applicable): : Not applicable PATIENT: MARK NDIAYE ENCOUNTER: [id number] MEDICAL RECORD#: [id number] ADMISSION DATE: 05/19/2020 DISCHARGE DATE: ATTENDING MD: DANETTE ALAN : AGE: 74 MARITAL STATUS: W DC PLAN ID: [id number] FACILITY: [facility] PRINTED ON: 06/09/20 15:25 CT All edits/amendments must be made on the electronic document DICTATION DATE: 06/09/201524 FILTER HELPER: MARITO 06/09/201524 RPT#: [id number] DC DATE: STATUS: ADM IN [facility] [address] [place] [address] END OF REPORT
--- NOTE | 2020-06-09 15:29 | NUR ---
REPORT WAS CALLED AND GIVEN TO CHARGE NURSE OVER AT [facility] AT THIS TIME SPOKE WITH JORDI.
--- NOTE | 2020-06-09 16:42 | NUR ---
OT NOTE: PT COMPLETED BED MOBILITY SIDE ROLLING WITH MIN-MOD A. PT REQUIRED TOTAL A FOR LB HYGIENE TASKS. PT COMPLETED BRIDGING WITH MIN A. PT COMPLETED HAND HYGIENE WITH MIN A. [phone] MILLA DOMÍNGUEZ COTA
--- NOTE | 2020-06-09 16:59 | NUR ---
PT DC AT THIS TIME VIA AMBULANCE TO [facility] WITH SON'S PACKING ALL PERSONAL BELONGING.IV DC. STABLE CONDITION UPON DEPARTURE.
--- NOTE | 2020-06-10 10:29 | MORECARE ---
CASE MANAGEMENT DISCHARGE SUMMARY PATIENT: MARK NDIAYE UNIT: [id number] ADM DATE: 05/19/20 AGE: 74 : 47 SEX: F ROOM/BED: D.2213 AUTHOR: GABY,DOC PHYSICIAN: REFERRING PHYSICIAN: DANETTE CHAVEZ MD DATE OF SERVICE: 06/10/20 Case Management Discharge Planning Summary COMMENTS ENTERED DATE: 06/09/20 15:18 CT COMMENT TYPE: Discharge Planning REVIEWER: Marion Vera PATIENT WILL BE DISCHARGING TO [facility] SHE WILL BE GOING VIA EMS TO A SKILLED BED SHE WILL TAKE X2 PLEUREX BOTTLES AND HER TRILIOGY MACHINE FROM [facility] I HAVE SENT THE SETTINGS TO THEM IMM SERVED AND EXPLAINED. I HAVE SPOKE WITH TEREZA THE PATIENTS SON TO LET HIM KNOW CM TO FOLLOW AND ASSIST NEEDED ENTERED DATE: 06/08/20 14:17 CT COMMENT TYPE: Discharge Planning REVIEWER: Marion Gamez SPOKE WITH TILA AT [facility] AND THEY ARE STILL WAITING ON AUTH SHE WILL CALL US WHEN SHE GETS IT ENTERED DATE: 06/08/20 12:50 CT COMMENT TYPE: Discharge Planning REVIEWER: Marion Gamez ATTEMPTED TO REACH [facility] FOR THE SECOND TIME TODAY AND I HAVE NOT GOT AN ANSWER I HAVE LEFT A MESSAGE FOR HER TO CALL ME BACK ENTERED DATE: 06/07/20 9:29 CT COMMENT TYPE: Discharge Planning REVIEWER: Marion Gamez SPOKE WITH SANDEEP WITH [facility] AND SHE IS BRINGING PATIENT'S TRILIOGY UP HERE FOR THE PATIENT TO USE AND POTENTIALLY DC TOMORROW TO [place] [facility] CALLED [facility] AT [place] TO LET HER KNOW CM TO FOLLOW AND ASSIST NEEDED ENTERED DATE: 06/02/20 9:22 CT COMMENT TYPE: Discharge Planning REVIEWER: Marion Gamez PATIENTS AUTH HAS AT [place] AND THEY WILL HAVE TO GET ANOTHER AUTH WHEN STABLE I HAVE CONTACTED SHERYL AT [facility] TO START THE PROCESS TO GET HER APPROVED FOR A TRILOGY ENTERED DATE: 05/31/20 7:30 CT COMMENT TYPE: Discharge Planning REVIEWER: Marion Gamez LATE ENTRY 05/30 1400 [facility] FROM [place] CALLED AND STATED THAT SHE HAS RECEIVED AUTH AND CAN BE ACCEPTED WHEN SHE IS STABLE ENTERED DATE: 05/27/20 16:05 CT COMMENT TYPE: Discharge Planning REVIEWER: Marion RIGGS WITH [facility] CALLED ANDSTATED THAT ARETHA ( THE DON ) WILL BE WORKING THIS WEEKEND AND IF SHE GETS THE AUTH SHE WILL REACH OUT TO US ENTERED DATE: 05/27/20 15:29 CT COMMENT TYPE: Discharge Planning REVIEWER: Marion Gamez RECEIVED A CALL FROM [facility] AT [place] STATING THAT THEY HAVE APPROVAL, BUT ARE PENDING THE DATES SHE IS APRROVED SHE WILL REACH OUT TO US WHEN SHE RECEIVES THAT INFORMATION I ALSO REACHED OUT TO HER TO GET AN UPDATE AND LEFT A MESSAGE FOR HER TO CALL ME ENTERED DATE: 05/26/20 13:39 CT COMMENT TYPE: Discharge Planning REVIEWER: Marion Gamez PATIENT WAS DENIED INPATIENT REHAB, I SPOKE WITH THE PATIENT TO SEE IF SHE WOULD LIKE TO GO TO A SKILLED FACILITY AND SHE WOULD, REFERRAL TO BE SENT TO [place] [facility] ENTERED DATE: 05/24/20 10:41 CT COMMENT TYPE: Discharge Planning REVIEWER: Marion Gamez CM met with patient & her sisters to complete initial dc planning assessment. CM educated patient on the CM role and verbal consent given by patient to complete assessment. Patient lives at home where she had been independent. Per one sister she was getting dizzy at home and she had just bought her a walker before she fell. She stated that her son had been helping take her to get her medications and md appointments. Dr Pringle is her PCP. At discharge patient would like to go to inpatient rehab as long as she has a private room and feels this is a safe discharge. CM discussed availability of home health, rehab services, and medical equipment. She uses home O2 and portable. she gets her O2 DME from [facility]. PHILLIP has been signed for Inpatient rehab. Patient denied known discharge needs at this time. CM will continue to follow and will assist as needed with dc plans/needs. DCP REVIEW SUMMARY ANTICIPATED D/C DATE: EXPECTED LOS : CASE STATUS: DCP Initiated INITIAL REVIEW: 05/19/2020 INITIAL REVIEWER: Marion Gamez FINAL DISCHARGE DISPOSITION: : FINAL REVIEWER: FINAL REVIEW DATE: DCP Focus Questions & Answers DCP Screen QUESTION: ANSWER High Risk Factors: : Hosp related to CHF, COPD, DM, End Stage Ds, CVA, CA DCP Evaluation QUESTION: ANSWER Patient and/or caregiver agree upon recommended discharge plan? : Yes Family / Caregiver's ability to cope with chronic illness: : a. Adequate (ability to meet patient's medical needs, ensures patient attends medical appts.) Patient's current cognitive status: : Intermittently confused / memory changes Patient's ability to cope with chronic illness : d. No chronic illness Patient gives permission to discuss discharge plans with: (name, relationship and number) : ALL SISTERS AND SON Alternate discharge plan (if recommended plan not agreed upon by patient and/or caregiver): : 1)INPATIENT REHAB WOULD LIKE A PRIVATE ROOM 2) SKILLED Does the patient have the ability to pay for or attain post discharge needs / services? : Yes Functional screen assessment: : New onset in difficulty in gait, balance, or transfer difficulties Functional screen assessment: : Unable to manage ADLs without immediate ongoing assistance Family / Caregiver's ability to cope with chronic illness: : b. Minimal (occasionally not dependable to meet pt's. needs, can meet pt's. basic ADL's) Physical Status: : Mobility impaired Is there a likelihood that the patient will require additional services to return to the preadmission environment? : Yes Living Arrangements: : Home Alone with Support Partial Dependence, assistance required for: : Bathing Results of this evaluation have been discussed with: : Patient Results of this evaluation have been discussed with: : Family Patient with capacity for self-care or can be cared for in same environment as prior to hospitalization? : No Living arrangements comments: : LIVES ALONE HAS GOOD SUPPORT SYSTEM Baseline cognitive status: : *Oriented to person, place, situation, time and present Physical environment modification needed / anticipated for discharge: : Yes Comments: : DR PRINGLE IS PCP [facility]- FOR HOME O2 Medication Management: : Patient states can afford medications Planned post hospital services available for patient? : Yes Pharmacy name(s): : [facility] IN [place] Does Patient have transportation to get home and to follow-up medical appointments when discharged from the hospital? : Yes Would patient like to participate in any Care Coordination programs (if applicable): : Not applicable Comments: : HER SON HELPS Does the patient have electricity at home? : Yes Does the patient have running water in their house? : Yes Equipment in use: : Walker - Rollator Equipment in use: : Home Oxygen with Nasal Cannula Other Equipment comments: : HAS A WALKER, BUT WAS NOT USING IT Mental health screen: : No mental health history Psychosocial status: : Adult with physical limitations DCP Re-evaluation QUESTION: ANSWER Would patient like to participate in any Care Coordination programs (if applicable): : Not applicable PATIENT: MARK NDIAYE ENCOUNTER: [id number] MEDICAL RECORD#: [id number] ADMISSION DATE: 05/19/2020 DISCHARGE DATE: 06/09/2020 ATTENDING MD: DANETTE ALAN : AGE: 74 MARITAL STATUS: W DC PLAN ID: [id number] FACILITY: [facility] PRINTED ON: 06/10/20 10:29 CT All edits/amendments must be made on the electronic document DICTATION DATE: 06/10/20 1028 TRIMMING MACHINE SET UP OPERATOR: MARITO 06/10/20 1028 RPT#: [id number] DC DATE:06/09/20 STATUS: DIS IN [facility] [address] [place] [address] END OF REPORT
== END 2020-06-09 17:11 | DRG 557 ==
LOC: D.ER 13:27 → D.MS 15:35
PROVIDERS: Family Medicine; Specialist; ADMIT Emergency Medicine; ATTEND Emergency Medicine
PROC: 0W9G3ZZ Drainage of Peritoneal Cavity, Percutaneous Approach (ICD-10-PCS; principal; 2020-05-30 11:24)
PROC: 0JH63XZ Insertion of Tunneled Vascular Access Device into Chest Subcutaneous Tissue and Fascia, Percutaneous Approach (ICD-10-PCS; 2020-06-02)
DX: M62.82 Rhabdomyolysis (principal); J96.01 Acute respiratory failure with hypoxia; G93.41 Metabolic encephalopathy; N17.9 Acute kidney failure, unspecified; E87.1 Hypo-osmolality and hyponatremia; R18.8 Other ascites; R53.1 Weakness; I10 Essential (primary) hypertension; E78.5 Hyperlipidemia, unspecified; E11.9 Type 2 diabetes mellitus without complications; E87.6 Hypokalemia; W19.XXXA Unspecified fall, initial encounter; Z85.118 Personal history of other malignant neoplasm of bronchus and lung; M10.9 Gout, unspecified; M19.90 Unspecified osteoarthritis, unspecified site; K72.90 Hepatic failure, unspecified without coma; K74.69 Other cirrhosis of liver; K52.9 Noninfective gastroenteritis and colitis, unspecified

== ENCOUNTER → 2020-06-10 17:31 | Outpatient (CLI) | payer MEDICARE ==
[2020-05-23 12:41] VITALS: BMI 23.6
[~2020-06-10 17:31] MED LIST changes: +CHRONULAC30 ML PO; +ROBITUSSIN DM 110 ML PO
[2020-06-10 19:09] LABS: BASOPHILS 0.3 % (0-2); EOSINOPHILS 0.7 % (0-7); HEMATOCRIT 35.7 % (36.0-48.0); HEMOGLOBIN 11.3 g/dL (12-16); IMMATURE GRANULOCYTES 0.3 % (0-5); LYMPHOCYTE ABS# 0.86 10x3/uL (1.18-3.74); LYMPHOCYTES 14.1 % (15-50); MCH 31.6 pg (26.0-34.0); MCHC 31.7 g/dL (31.0-37.0); MCV 99.7 fL (80.0-100.0); MEAN PLATELET VOLUME 11.6 fL (7.4-10.4); MONOCYTES 10.4 % (2-11); NEUTROPHIL ABS# 4.51 10x3/uL (1.56-6.13); NEUTROPHILS 74.2 % (40-80); PLATELET COUNT 128 10x3/uL (130-400); RBC 3.58 10x6/uL (4.00-5.40); RDW 17.4 % (11.5-14.5); WBC 6.1 10x3/uL (4.8-10.8)
[2020-06-10 19:40] LABS: ALBUMIN 1.9 g/dL (3.4-5.0); ALKALINE PHOSPHATASE 268 U/L (30-120); ALT (SGPT) 48 U/L (10-68); CALC OSMOLALITY 279 mosm/kg (275-300); CALCIUM 8.3 mg/dL (8.5-10.1); CARBON DIOXIDE 35.6 mmol/L (21.0-32.0); CHLORIDE - SERUM 99 mmol/L (98-107); CHOL - HDL RATIO 21.1 ratio (2.3-4.1); CHOLESTEROL, TOTAL 317 mg/dL (0-200); CREATININE - SERUM 0.7 mg/dL (0.6-1.3); GLUCOSE 125 mg/dL (74-106); HDL CHOLESTEROL 15 mg/dL (32-96); LDL CHOLESTEROL 251 mg/dL (0-100); LDL-HDL RATIO 16.7 ratio (1.5-3.5); POTASSIUM - SERUM 4.5 mmol/L (3.5-5.1); PROTEIN - SERUM 5.2 g/dL (6.4-8.2); SODIUM 138 mmol/L (136-145); TRIGLYCERIDE 259 mg/dL (30-200); UREA NITROGEN 20 mg/dL (7-18); eGFR NON AFRICAN AMERICAN 87 mL/min (90-120)
== END | disposition home or self-care (01) ==
LOC: D.LABREF 17:31
PROVIDERS: ATTEND Family Medicine
DX: I10 Essential (primary) hypertension (principal)